=== PATIENT | female | born 1940 | race Caucasian/White ===

== ENCOUNTER 2016-08-14 03:20 | Day surgery (SDC) | payer MEDICARE ==
--- NOTE | 2016-08-14 03:47 | ED ---
Fall HPI - General Source: patient, EMS, RN notes reviewed Mode of arrival: EMS - History of Present Illness MD Complaint: fall <Natalio Salazar - Last Filed: 08/14/16 07:30> <Alon Heath - Last Filed: 08/14/16 09:04> - General Chief Complaint: Fall Stated Complaint: Fall Time Seen by Provider: 08/14/16 03:20 - History of Present Illness Initial Comments: This is a 76-year-old female who states she was trying to the bathroom prior to admission when she got her foot caught on a rug and fell she hit the right side of her forehead she also complains of left arm pain and right by her bicep. She has no complaints of other head or neck pain she does complain some thoracic back pain but this is chronic. Loss of function to her upper or lower extremities no blurry vision no other complaints at this time (Natalio Salazar) - Related Data Home Medications Medication Instructions Recorded Confirmed ALPRAZolam 0.5 mg PO TID PRN 10/16/13 10/28/15 Atorvastatin [Lipitor] 40 mg PO HS 10/16/13 10/28/15 Clopidogrel [Plavix] 75 mg PO DAILY 10/16/13 10/28/15 Donepezil [Aricept] 10 mg PO BID 10/16/13 10/28/15 Gabapentin [Neurontin] 600 mg PO BID 10/16/13 10/28/15 Insuln Asp Prt/Insulin Aspart 70 units SQ AC-BID 10/16/13 10/28/15 [NovoLOG MIX 70-30 VIAL] Multivitamins with Iron [Daily 1 tab PO DAILY 10/16/13 10/28/15 Multivitamin with Iron] Oxybutynin Chloride [Oxybutynin 5 mg PO BID 10/16/13 10/28/15 Chloride ER] Potassium Chloride [K-Tab ER] 10 meq PO BID 10/16/13 10/28/15 clonazePAM [KlonoPIN] 2 mg PO BID 10/16/13 10/28/15 Cholecalciferol [Vitamin D3] 1,000 unit PO BID 01/14/15 10/28/15 Furosemide [Lasix] 40 mg PO AC-SUPPER 01/14/15 10/28/15 Furosemide [Lasix] 80 mg PO QAM 01/14/15 10/28/15 [place]-3 Fatty Acids/Fish Oil [Fish 1 cap PO BID 01/14/15 10/28/15 Oil 1,000 mg Softgel] Venlafaxine HCl ER [Effexor XR] 75 mg PO BID 01/14/15 10/28/15 Atenolol [Tenormin] 25 mg PO BID 10/28/15 10/28/15 Losol Iodine Drops 6 drops PO BID 10/28/15 10/28/15 Previous Rx's Medication Instructions Recorded Aspirin EC [Ecotrin Low Dose] 81 mg PO DAILY tablet. 01/16/15 Isosorbide Mononitrate ER [Imdur] 30 mg PO DAILY #30 tab 01/16/15 Hydrocodone/Acetaminophen [[place] 1 each PO Q6HR PRN #60 tab 03/13/15 5-325] Allergies Allergy/AdvReac Type Severity Reaction Status Date / Time mineral oil [Mineral Oil] Allergy Rash/Hives Verified 10/28/15 10:54 naproxen sodium [From Aleve] Allergy Swelling Verified 11/02/15 11:49 nickel Allergy Rash/Hives Verified 10/28/15 10:54 Penicillins Allergy Anaphylaxis Verified 10/28/15 10:54 dove soap Allergy Rash/Hives Uncoded 10/28/15 10:54 Review of Systems ROS Other: All systems not noted in ROS Statement are negative. <Natalio Salazar - Last Filed: 08/14/16 07:30> ROS Other: All systems not noted in ROS Statement are negative. <Alon Heath - Last Filed: 08/14/16 09:04> ROS Statement: Those systems with pertinent positive or pertinent negative responses have been documented in the HPI. Past Medical History Past Medical History: Coronary Artery Disease (CAD), Cancer, Chest Pain / Angina , Diabetes Mellitus, Eye Disorder, Fibromyalgia, GERD/Reflux, Hyperlipidemia, Hypertension, Myocardial Infarction ([place]), Osteoarthritis (OA) Additional Past Medical History / Comment(s): HX STRESS INCONTINENCE, CHRONIC BACK PAIN, BREAST CANCER, GLASSES TO READ Last Myocardial Infarction Date:: 05/09/2012 History of Any Multi-Drug Resistant Organisms: None Reported Past Surgical History: Appendectomy, Breast Surgery, Heart Catheterization With Stent Additional Past Surgical History / Comment(s): EXT. CATARACT WITH LENS IMPLANT RAZIA.,LAST CARDIAC STENT 01/14/15-TOTAL 2 STENTS, colonscopy,RAZIA. BREAST LUMPECTOMY. 03-10-15 total rt knee replacement. Past Anesthesia/Blood Transfusion Reactions: No Reported Reaction Additional Past Anesthesia/Blood Transfusion Reaction / Comment(s): ALLERGY TO NICKEL Date of Last Stent Placement:: 01/14/15 Past Psychological History: Anxiety, Depression Additional Psychological History / Comment(s): pt lives at home wioth her husand. uses a cane/walker when up. gets no outside services into the home. Smoking Status: Former smoker Past Alcohol Use History: None Reported Additional Past Alcohol Use History / Comment(s): smoked from age [age] 1/2 pp week,quit 1964 Past Drug Use History: None Reported - Past Family History Brother(s) Family Medical History: CVA/TIA Additional Family Medical History / Comment(s): HX BLOOD CLOTS Mother History Unknown: Yes Family Medical History: Cancer Additional Family Medical History / Comment(s): Lung CA, Bone CA, Father Family Medical History: CVA/TIA, Myocardial Infarction ([place]) <Natalio Salazar - Last Filed: 08/14/16 07:30> General Exam Limitations: no limitations General appearance: alert, in no apparent distress Head exam: Present: normocephalic, other (She demonstrates ecchymosis over the right upper eyelid no step-off or crepitation. No step-off no crepitation pupils equal round and reactive. Unsure canals are clear nontender to palpation ) Eye exam: Present: PERRL, EOMI ENT exam: Present: normal oropharynx Neck exam: Present: normal inspection. Absent: tenderness, meningismus, lymphadenopathy Respiratory exam: Present: normal lung sounds bilaterally. Absent: respiratory distress, wheezes, rales, rhonchi, stridor Cardiovascular Exam: Present: regular rate, normal rhythm, normal heart sounds. Absent: systolic murmur, diastolic murmur, rubs, gallop, clicks GI/Abdominal exam: Present: soft, normal bowel sounds. Absent: distended, tenderness, guarding, rebound, rigid Extremities exam: Present: tenderness (Is for the mid left humerus no definite step-off crepitation regulation. Risks the exam is unremarkable for this extremity no before meals tenderness.), normal capillary refill. Absent: full ROM Back exam: Present: normal inspection, tenderness (Tennis of the paraspinous muscles of the midthoracic spine between his scapula no spinous process tenderness), paraspinal tenderness. Absent: CVA tenderness (R), CVA tenderness (L), vertebral tenderness, rash noted Neurological exam: Present: alert, oriented X3, CN II-XII intact Psychiatric exam: Present: normal affect, normal mood Skin exam: Present: warm, dry, intact, normal color. Absent: rash <Natalio Salazar - Last Filed: 08/14/16 07:30> General appearance: alert, in no apparent distress, obese Head exam: Present: normocephalic, normal inspection. Absent: atraumatic ( Right eye bruise) Eye exam: Present: normal appearance, PERRL, EOMI. Absent: scleral icterus, conjunctival injection, periorbital swelling ENT exam: Present: normal exam, mucous membranes dry Neck exam: Present: normal inspection. Absent: tenderness, meningismus, lymphadenopathy Respiratory exam: Present: normal lung sounds bilaterally. Absent: respiratory distress, wheezes, rales, rhonchi, stridor Cardiovascular Exam: Present: regular rate, normal rhythm, normal heart sounds. Absent: systolic murmur, diastolic murmur, rubs, gallop, clicks GI/Abdominal exam: Present: soft, normal bowel sounds. Absent: distended, tenderness, guarding, rebound, rigid Extremities exam: Present: normal inspection, full ROM, normal capillary refill , other (Left shoulder dislocation, patient is neurovascularly intact). Absent : tenderness, pedal edema, joint swelling, calf tenderness Back exam: Present: normal inspection Neurological exam: Present: alert, oriented X3, CN II-XII intact Psychiatric exam: Present: normal affect, normal mood Skin exam: Present: warm, dry, intact, normal color. Absent: rash <Alon Heath - Last Filed: 08/14/16 09:04> - General Exam Comments Initial Comments: This is a well little pulmonary awake alert oriented 3 female she does demonstrate a [place] Coma Scale of 15 (Natalio Salazar) Course <Natalio Salazar - Last Filed: 08/14/16 07:30> <Alon Heath - Last Filed: 08/14/16 09:04> Vital Signs 08/14/16 08/14/16 08/14/16 03:28 05:25 06:00 Temperature 97.8 F Pulse Rate 71 66 80 Respiratory 16 18 18 Rate Blood Pressure 98/40 97/45 129/58 O2 Sat by Pulse 94 L 98 Oximetry 08/14/16 08/14/16 08/14/16 06:52 06:53 06:58 Temperature Pulse Rate 77 74 80 Respiratory 18 18 18 Rate Blood Pressure 128/58 128/58 129/58 O2 Sat by Pulse 99 96 99 Oximetry 08/14/16 08/14/16 08/14/16 07:03 07:08 07:19 Temperature Pulse Rate 77 76 84 Respiratory 18 18 16 Rate Blood Pressure 162/72 159/63 140/79 O2 Sat by Pulse 99 99 97 Oximetry 08/14/16 08/14/16 08/14/16 07:22 07:25 07:30 Temperature Pulse Rate 81 81 78 Respiratory 16 16 16 Rate Blood Pressure 171/66 O2 Sat by Pulse 100 100 97 Oximetry 08/14/16 08/14/16 08/14/16 07:35 07:40 07:45 Temperature Pulse Rate 81 79 77 Respiratory 16 16 16 Rate Blood Pressure 157/67 152/70 143/66 O2 Sat by Pulse 99 100 99 Oximetry 08/14/16 08/14/16 07:50 08:04 Temperature Pulse Rate 78 78 Respiratory 16 16 Rate Blood Pressure 140/59 171/66 O2 Sat by Pulse 100 97 Oximetry - Reevaluation(s) Reevaluation #1: 08/14/16 07:31 I did discuss case with Dr. Bee initially the plan was to use close reduction to reduce the shoulder and the the CAT scan. The case will be endorsed to Dr. Heath will make the final disposition (Natalio Salazar) Reevaluation #2: 08/14/16 08:46 Patient resting comfortably, still with left shoulder pain (Alon Heath ) Reevaluation #3: 08/14/16 09:00 Spoke with orthopedics on-call Dr. Bee as well as anesthesiology, patient will have inpatient reduction in the operating room (Alon Heath) Procedures - Procedural Sedation Procedural Sedation Start Time: 06:52 Procedural Sedation Stop Time: 07:30 Indications: fracture/dislocation reduction Mallampati Airway Score: 3 IV Propofol Dose (mgs): 15 Patient Tolerated Procedure: well (Patient did require 2 doses the first attempt was 100 mg a second one was 50 mg) <Natalio Salazar - Last Filed: 08/14/16 07:30> - Orthopedic Joint Reduction Joint #1 Consent Obtained: verbal consent Time Out Performed: Yes Side: left Joint Reduction Location: shoulder Analgesia: procedural sedation Shoulder Technique Used (if applicable): traction/counter-traction, external rotation, Milch, Vishal, other (Multiple attempts at reduction, failed) Technique Used: traction/counter-traction Post-Reduction Neuro Exam: intact Post-Reduction Vascular Exam: intact Post Reduction X-Ray Obtained: Yes Post Reduction X-Ray Results: not reduced Splint Applied: Yes Patient Tolerated Procedure: well - Procedural Sedation Preparation: trapper bird applied, pulse oximeter, supplemental O2 applied IV Propofol Dose (mgs): 150 Complications: none Interventions: oxygen applied Patient Tolerated Procedure: well <Alon Heath - Last Filed: 08/14/16 09:04> - Procedures Initial comment: Attempts to use closed reduction the left shoulder were attempted 3 the first 2 failed. Initiated did appear that the shoulder did reduce however due to the patient's habitus is very difficult to palpate the humeral head. A third attempt was accomplished with x-rays pending. (Natalio Salazar) - Procedural Sedation Other Medications Used: Dilaudid (Alon Heath) Medical Decision Making - Lab Data Result diagrams: 08/14/16 05:45 08/14/16 05:45 - EKG Data -: EKG Interpreted by Ar EKG shows normal: sinus rhythm (EKG shows sinus rhythm with first-degree AV block rate was 70. Interval 222 QRS duration 84 daily since QTC of 426/460 st- t wave changes.) <Natalio Salazar - Last Filed: 08/14/16 07:30> - Lab Data Result diagrams: 08/14/16 05:45 08/14/16 05:45 - Radiology Data Radiology results: report reviewed (CT of left shoulder and multiple subsequent x-rays of left shoulder show continued left shoulder anterior inferior dislocation), image reviewed <Alon Heath - Last Filed: 08/14/16 09:04> - Medical Decision Making 72 for female here status post fall, mechanical fall with closed head injury, patient also stating left shoulder injury, left shoulder dislocation, under conscious sedation procedural sedation in the emergency room 3 attempts were made at relocation, unsuccessful, orthopedics and anesthesiology were notified and patient will be admitted for reduction in the emergency room (Alon Heath) - Lab Data Lab Results 08/14/16 08/14/16 08/14/16 Range/Units 05:45 05:45 05:45 WBC 14.1 H (3.8-10.6) k/uL RBC 4.21 (3.80-5.40) m/uL Hgb 12.4 (11.4-16.0) gm/dL Hct 38.9 (34.0-46.0) % MCV 92.3 (80.0-100.0) fL MCH 29.4 (25.0-35.0) pg MCHC 31.8 (31.0-37.0) g/dL RDW 13.5 (11.5-15.5) % Plt Count 270 (150-450) k/uL Neutrophils % 73 % Lymphocytes % 16 % Monocytes % 6 % Eosinophils % 2 % Basophils % 0 % Neutrophils # 10.2 H (1.3-7.7) k/uL Lymphocytes # 2.3 (1.0-4.8) k/uL Monocytes # 0.9 (0-1.0) k/uL Eosinophils # 0.3 (0-0.7) k/uL Basophils # 0.1 (0-0.2) k/uL PT 10.6 (9.0-12.0) sec INR 1.0 (<1.1) APTT 22.7 (22.0-30.0) sec Sodium 138 (137-145) mmol/L Potassium 4.1 (3.5-5.1) mmol/L Chloride 100 (98-107) mmol/L Carbon Dioxide 27 (22-30) mmol/L Anion Gap 11 mmol/L BUN 15 (7-17) mg/dL Creatinine 0.70 (0.52-1.04) mg/dL Est GFR (MDRD) Af Amer >60 (>60 ml/min/1.73 sqM) Est GFR (MDRD) Non-Af >60 (>60 ml/min/1.73 sqM) Glucose 233 H (74-99) mg/dL Calcium 9.2 (8.4-10.2) mg/dL Magnesium 1.8 (1.6-2.3) mg/dL Total Bilirubin 0.6 (0.2-1.3) mg/dL AST 29 (14-36) U/L ALT 42 (9-52) U/L Alkaline Phosphatase 93 (38-126) U/L Total Protein 6.8 (6.3-8.2) g/dL Albumin 3.4 L (3.5-5.0) g/dL Disposition <Natalio Salazar - Last Filed: 08/14/16 07:30> Decision to Admit Reason: Admit from EC <Alon Heath - Last Filed: 08/14/16 09:04> Clinical Impression: Fall, Head injury, Dislocation of left shoulder joint Disposition: ADMITTED IP TO THIS HOSP Condition: Fair
[2016-08-14] MEDS ORDERED: ACETAMINOPHEN IV (For NPO) 1,000 MG in EMPTY BAG 1 BAG IVPB ONE (04:07)
--- NOTE | 2016-08-14 04:34 | CT ---
EXAM: CT Head Without Intravenous Contrast. CLINICAL HISTORY: Trauma to right face. TECHNIQUE: Axial computed tomography images of the head/brain without intravenous contrast. CTDI is 57.40 mGy and DLP is 1047.10 mGy-cm COMPARISON: No relevant prior studies available. FINDINGS: Brain: No acute intracranial hemorrhage, loss of avila-white differentiation, or significant mass effect. Ventricular and sulcal prominence commensurate with the patient's age. Ventricles: See above. Bones/joints: Fracture of the inferior wall of the right orbit. Right periorbital hematoma. Bilateral globes appear intact. Soft tissues: Unremarkable. Sinuses: Hemorrhage is present in the right maxillary sinus. Mastoid air cells: Unremarkable. IMPRESSION: No acute intracranial hemorrhage or calvarial fracture. Fracture of the inferior wall of the right orbit. Right periorbital hematoma. CT of the face may be considered for further evaluation, as clinically indicated. EXAM: CT Cervical Spine Without Intravenous Contrast. CLINICAL HISTORY: Trauma to right face. TECHNIQUE: Axial computed tomography images of the cervical spine without intravenous contrast. CTDI is 57.40 mGy and DLP is 1047.10 mGy-cm COMPARISON: No relevant prior studies available. FINDINGS: Vertebrae: No acute fracture or malalignment. Diffuse osteopenia. Discs/spinal canal/neural foramina: Mild degenerative changes of the cervical spine with disc height loss, osteophytes, uncovertebral spurs, and facet arthropathy. No significant osseous spinal or foraminal stenosis. Soft tissues: Unremarkable. Thyroid: Indeterminate 8 mm thyroid nodule. Lung apices: Unremarkable as visualized. IMPRESSION: No acute fracture or malalignment.
--- NOTE | 2016-08-14 04:44 | XR ---
EXAM: XR Left Humerus, 2 or More Views. CLINICAL HISTORY: Reason: Pain TECHNIQUE: Frontal and lateral views of the left humerus. COMPARISON: No relevant prior studies available. FINDINGS: Bones/joints: Anterior shoulder dislocation. A large fracture fragment projects over the glenoid, the humeral head is likely the donor site. Soft tissues: Unremarkable. IMPRESSION: Fracture dislocation of the left shoulder.
[2016-08-14] MEDS ORDERED: HYDROmorphone 1 MG/ML 1 ML SYRINGE IVP STA (04:57)
--- NOTE | 2016-08-14 05:09 | XR ---
EXAM: XR Thoracic Spine, 3 Views. CLINICAL HISTORY: Reason: Pain TECHNIQUE: Frontal, lateral and swimmer's views of the thoracic spine. COMPARISON: No relevant prior studies available. FINDINGS: Limitations: The patient's body habitus. Vertebrae: No acute fracture or malalignment. Disc spaces: Mild degenerative changes of the thoracic spine. Soft tissues: Unremarkable. IMPRESSION: No definite acute osseous abnormality.
[2016-08-14] MEDS ORDERED: SODIUM CHLORIDE 0.9% 1,000 ML IV STA (05:49)
[2016-08-14 06:01] LABS: Basophils # (A) 0.1 k/uL (0-0.2); Basophils % (A) 0 %; CH 30.5; CHCM 33.2; Eosinophils # (A) 0.3 k/uL (0-0.7); Eosinophils % (A) 2 %; HCT 38.9 % (34.0-46.0); HGB 12.4 gm/dL (11.4-16.0); Luc # (Auto) 0.34; Luc % (Auto) 2; Lymphocytes # (A) 2.3 k/uL (1.0-4.8); Lymphocytes % (A) 16 %; MCH 29.4 pg (25.0-35.0); MCHC 31.8 g/dL (31.0-37.0); MCV 92.3 fL (80.0-100.0); Mean Platelet Volume 7.5; Monocytes # (A) 0.9 k/uL (0-1.0); Monocytes % (A) 6 %; Neutrophils # (A) 10.2 k/uL (1.3-7.7); Neutrophils % (A) 73 %; RBC 4.21 m/uL (3.80-5.40); RDW 13.5 % (11.5-15.5); WBC 14.1 k/uL (3.8-10.6); WBC (Perox) 13.71
[2016-08-14 06:06] LABS: Prothrombin Time 10.6 sec (9.0-12.0)
[2016-08-14 06:07] LABS: ALT 42 U/L (9-52); AST 29 U/L (14-36); Alkaline Phosphatase 93 U/L (38-126); Anion Gap 11 mmol/L; Blood Urea Nitrogen 15 mg/dL (7-17); Calcium 9.2 mg/dL (8.4-10.2); Carbon Dioxide 27 mmol/L (22-30); Chloride 100 mmol/L (98-107); Glucose 233 mg/dL (74-99); Magnesium 1.8 mg/dL (1.6-2.3); Non-African American GFR(MDRD) >60 (>60 ml/min/1.73 sqM); Potassium 4.1 mmol/L (3.5-5.1); Sodium 138 mmol/L (137-145); Total Bilirubin 0.6 mg/dL (0.2-1.3); Total Protein 6.8 g/dL (6.3-8.2)
[2016-08-14 06:13] LABS: Partial Thromboplastin Time 22.7 sec (22.0-30.0)
[2016-08-14] MEDS ORDERED: PROPOFOL 10 MG/ML 20 ML VIAL IV STA (06:32)
--- NOTE | 2016-08-14 06:37 | XR ---
EXAM: XR Chest, 1 View. CLINICAL HISTORY: Reason: cough TECHNIQUE: Frontal view of the chest. COMPARISON: 03/13/2015 FINDINGS: Lungs: Low lung volumes with bibasilar atelectasis. Left apical pleural parenchymal scar. Pleural space: Unremarkable. No pneumothorax. Heart: Stable cardiomediastinal silhouette. Mediastinum: See above. Bones/joints: Anterior left shoulder dislocation and fracture. Soft tissues: Surgical clips project over the right axilla. IMPRESSION: Hypoventilatory examination with bibasilar atelectasis.
--- NOTE | 2016-08-14 08:27 | XR ---
EXAMINATION TYPE: XR shoulder limited LT DATE OF EXAM: 08/14/2016 7:07 AM COMPARISON: NONE HISTORY: Pain TECHNIQUE: Shoulder examined in one view FINDINGS: There is dislocation of the humeral head. There is avulsion of the greater tuberosity of the humerus. Bankart fracture is not excluded. The acromio-clavicular junction is normal. IMPRESSION: 1. Dislocation of the humerus 2. Avulsion of the greater tuberosity. 3. Possible Bankart fracture.
--- NOTE | 2016-08-14 08:28 | XR ---
EXAMINATION TYPE: XR shoulder limited LT DATE OF EXAM: 08/14/2016 7:21 AM COMPARISON: Left shoulder same date HISTORY: Dislocation TECHNIQUE: Shoulder examined in one view FINDINGS: There is an anterior inferior dislocation of the humeral head in relation to the glenoid. There is av ulsion of the greater tuberosity of the humerus. Possible Bankart fracture may be present. Findings a ppear stable from comparison. The acromio-clavicular junction is normal. IMPRESSION: 1. Anterior-inferior dislocation left humeral head
--- NOTE | 2016-08-14 08:30 | XR ---
EXAMINATION TYPE: XR shoulder limited LT DATE OF EXAM: 08/14/2016 7:51 AM COMPARISON: Left shoulder images same date HISTORY: Pain TECHNIQUE: Shoulder examined in 3 FINDINGS: The dislocation remains present. The humeral avulsion and suspected Bankart fracture are stable. IMPRESSION: 1. Dislocation left shoulder
--- NOTE | 2016-08-14 08:36 | CT ---
EXAMINATION TYPE: CT shoulder LT wo con DATE OF EXAM: 08/14/2016 8:29 AM COMPARISON: NONE HISTORY: Fx and dislocation CT DLP: 842.4 mGycm Automated exposure control for dose reduction was used. TECHNIQUE: Axial images 3 mm thick sections. Reconstructed images in coronal and sagittal plane. Thre e-D reconstructed images performed separately on the ventricular computer by the technologist are jarod freed. FINDINGS: There is dislocation of the humeral head anterior and inferior to the glenoid. The acromioclavicular junction appears intact. There is calcification at the shoulder joint space which appears to be an av ulsion of the tuberosity of the humerus. Plain film suggestion of a Bankart fracture is not supported on these images. The inferior glenoid appears intact as visualized. Hill-Sachs deformity may be pres ent. IMPRESSION: 1. DISLOCATION OF THE HUMERAL HEAD AND GLENOID ANTERIOR AND INFERIOR. 2. AVULSION OF THE GREATER TUBEROSITY OF THE HUMERUS. 3. POSSIBLE HILL-SACHS DEFORMITY OF THE HUMERAL HEAD. 4. NO BANKART FRACTURE IS IDENTIFIED THE CT IMAGES
[2016-08-14] MEDS ORDERED: INSULIN LISPRO (humaLOG) 300 UNIT/3 ML VIAL SQ ONE (10:36)
[2016-08-14] MEDS ORDERED: LACTATED RINGERS 1,000 ML IV ONE ×3 (10:42→12:30)
[2016-08-14] MEDS ORDERED: HYDROmorphone 1 MG/ML 1 ML SYRINGE IVP ONE ×5 (10:45→12:30)
[2016-08-14 10:48] LABS: Glucose,Whole Blood 242 mg/dL (75-99)
[2016-08-14] MEDS ORDERED: LIDOCAINE 1% INJ 10MG/ML (20 ML MDV) ONE (10:51)
[2016-08-14] MEDS ORDERED: PROPOFOL 10 MG/ML 20 ML VIAL IV ONE (10:51)
[2016-08-14] MEDS ORDERED: MIDAZOLAM 2 MG/2 ML VIAL ONE (10:51)
[2016-08-14] MEDS ORDERED: SUCCINYLCHOLINE CHLORIDE 100 MG/5 ML SYR IV ONE (10:51)
[2016-08-14] MEDS ORDERED: SENNOSIDES-DOCUSATE SODIUM 1 EACH TAB PO PRN (11:43)
[2016-08-14] MEDS ORDERED: HYDROcodone/APAP 5-325MG 1 EACH TAB PO PRN ×3 (11:43→14:00)
[2016-08-14] MEDS ORDERED: HYDROmorphone 1 MG/ML 1 ML SYRINGE IVP PRN ×3 (11:43)
[2016-08-14] MEDS ORDERED: diphenhydrAMINE 25 MG CAP PO PRN (11:43)
[2016-08-14] MEDS ORDERED: hydrOXYzine PAMOATE 25 MG CAP PO PRN (11:43)
--- NOTE | 2016-08-14 11:52 | P.HPOR ---
History of Present Illness H&P Date: 08/14/16 Chief Complaint: Left shoulder fracture dislocation after fall Mrs. Doraod is a 76-year-old female with a history of falling in her bathroom and sustaining a fracture dislocation of the left shoulder. She is morbidly obese and has multiple medical problems including diabetes. She states that she fell and got her left arm wedged between the wall and the sink and this was the cause of her left shoulder problems. She was taken to [facility] where x-rays were taken and confirmed a fracture dislocation of left shoulder. The ER staff attempted to reduce the shoulder 3 times under sedation and was unsuccessful. Therefore I was called for further evaluation and management of this problem. Of note, she had knee replacement surgery done by Dr. Rodriguez approximately a year and a half ago. She denies any significant loss of function below the elbow. She does confirm significant left shoulder pain. No other injuries. Review of Systems Constitutional: Reports as per HPI Musculoskeletal: Reports as per HPI Past Medical History Past Medical History: Coronary Artery Disease (CAD), Cancer, Chest Pain / Angina , Diabetes Mellitus, Eye Disorder, Fibromyalgia, GERD/Reflux, Hyperlipidemia, Hypertension, Myocardial Infarction (ND), Osteoarthritis (OA) Additional Past Medical History / Comment(s): HX STRESS INCONTINENCE, CHRONIC BACK PAIN, BREAST CANCER, GLASSES TO READ Last Myocardial Infarction Date:: 05/09/2012 History of Any Multi-Drug Resistant Organisms: None Reported Past Surgical History: Appendectomy, Breast Surgery, Heart Catheterization With Stent Additional Past Surgical History / Comment(s): EXT. CATARACT WITH LENS IMPLANT RAZIA.,LAST CARDIAC STENT 01/14/15-TOTAL 2 STENTS, colonscopy,RAZIA. BREAST LUMPECTOMY. 03-10-15 total rt knee replacement. Past Anesthesia/Blood Transfusion Reactions: No Reported Reaction Additional Past Anesthesia/Blood Transfusion Reaction / Comment(s): ALLERGY TO NICKEL Date of Last Stent Placement:: 01/14/15 Past Psychological History: Anxiety, Depression Additional Psychological History / Comment(s): pt lives at home wioth her husand. uses a cane/walker when up. gets no outside services into the home. Smoking Status: Former smoker Past Alcohol Use History: None Reported Additional Past Alcohol Use History / Comment(s): smoked from age [age] 1/2 pp week,quit 1964 Past Drug Use History: None Reported - Past Family History Brother(s) Family Medical History: CVA/TIA Additional Family Medical History / Comment(s): HX BLOOD CLOTS Mother History Unknown: Yes Family Medical History: Cancer Additional Family Medical History / Comment(s): Lung CA, Bone CA, Father Family Medical History: CVA/TIA, Myocardial Infarction (ND) Medications and Allergies Home Medications Medication Instructions Recorded Confirmed Type ALPRAZolam 0.5 mg PO TID PRN 10/16/13 10/28/15 History Atorvastatin [Lipitor] 40 mg PO HS 10/16/13 10/28/15 History Clopidogrel [Plavix] 75 mg PO DAILY 10/16/13 10/28/15 History Donepezil [Aricept] 10 mg PO BID 10/16/13 10/28/15 History Gabapentin [Neurontin] 600 mg PO BID 10/16/13 10/28/15 History Insuln Asp Prt/Insulin Aspart 70 units SQ AC-BID 10/16/13 10/28/15 History [NovoLOG MIX 70-30 VIAL] Multivitamins with Iron [Daily 1 tab PO DAILY 10/16/13 10/28/15 History Multivitamin with Iron] Oxybutynin Chloride [Oxybutynin 5 mg PO BID 10/16/13 10/28/15 History Chloride ER] Potassium Chloride [K-Tab ER] 10 meq PO BID 10/16/13 10/28/15 History clonazePAM [KlonoPIN] 2 mg PO BID 10/16/13 10/28/15 History Cholecalciferol [Vitamin D3] 1,000 unit PO BID 01/14/15 10/28/15 History Furosemide [Lasix] 40 mg PO AC-SUPPER 01/14/15 10/28/15 History Furosemide [Lasix] 80 mg PO QAM 01/14/15 10/28/15 History [place]-3 Fatty Acids/Fish Oil [Fish 1 cap PO BID 01/14/15 10/28/15 History Oil 1,000 mg Softgel] Venlafaxine HCl ER [Effexor XR] 75 mg PO BID 01/14/15 10/28/15 History Atenolol [Tenormin] 25 mg PO BID 10/28/15 10/28/15 History Losol Iodine Drops 6 drops PO BID 10/28/15 10/28/15 History Allergies Allergy/AdvReac Type Severity Reaction Status Date / Time mineral oil [Mineral Oil] Allergy Rash/Hives Verified 10/28/15 10:54 naproxen sodium [From Aleve] Allergy Swelling Verified 11/02/15 11:49 nickel Allergy Rash/Hives Verified 10/28/15 10:54 Penicillins Allergy Anaphylaxis Verified 10/28/15 10:54 dove soap Allergy Rash/Hives Uncoded 10/28/15 10:54 Physical Examination Exam is limited to the left upper extremity. Patient is morbidly obese with significant truncal obesity. The left landmarks are difficult to interpret secondary to body habitus. She is able to move the elbow and the forearm wrist and hand and fingers without problem. She denies any numbness or tingling down the left upper extremity. She does complain of significant irritability of the left shoulder to any movement. There is no evidence of obvious swelling or ecchymosis currently. Results - Labs Labs: Abnormal Lab Results - Last 24 Hours (Table) 08/14/16 08/14/16 08/14/16 Range/Units 05:45 05:45 10:30 WBC 14.1 H (3.8-10.6) k/uL Neutrophils # 10.2 H (1.3-7.7) k/uL Glucose 233 H (74-99) mg/dL POC Glucose (mg/dL) 242 H (75-99) mg/dL Albumin 3.4 L (3.5-5.0) g/dL H & H 08/14/16 Range/Units 05:45 Hgb 12.4 (11.4-16.0) gm/dL Hct 38.9 (34.0-46.0) % Coagulation 08/14/16 Range/Units 05:45 INR 1.0 (<1.1) Result Diagrams: 08/14/16 05:45 08/14/16 05:45 - Diagnostic results Shoulder x-ray: report reviewed, image reviewed (Plain x-rays and computed tomography scan show a fracture dislocation of the glenohumeral joint with an anterior inferior dislocation and what appears to be a fairly large greater tuberosity fracture.) Shoulder CT: report reviewed, image reviewed Assessment and Plan (1) Dislocation of left shoulder joint Status: Acute (2) Fracture of proximal end of humerus Status: Acute Plan: 1. I discussed the situation with Mrs. Dorado in detail today. I have recommended closure reduction with possible open reduction of the left shoulder joint in the operating room under general anesthesia with muscular relaxation. Should this not be able to be performed under closed methods, then a small incision can be made to insert a retractor or a metal finger to assist in the reduction. She wishes to proceed with this and I have explained to her the potential risks and complications of this procedure is being inclusive of, but not limited to: Leading, infection, scarring, discomfort, blood vessel and/or nerve damage, need for further surgery, failure to relieve symptoms, persistence worsening of problems, nonunion, instability, loss of limb or life, and other risks. I have explained to her that considering the nature of this injury as well as her body habitus and multiple medical comorbidities, this shoulder will likely have chronic issues with stiffness, weakness and pain, regardless of future treatment. Surgical fixation of the greater tuberosity is a possibility but considering the above factors we will need to discuss this in significant detail and come to a mutually agreed upon decision regarding surgery. The consent form has been signed. 2. Should the shoulder be able to be reduced without incision, she may be able to be discharged to home today with follow-up with either myself or Dr. Rodriguez in 1 week.
--- NOTE | 2016-08-14 12:01 | P.OP ---
Date of Procedure: 08/14/16 Procedure(s) Performed: PREOPERATIVE DIAGNOSES: 1. Left shoulder fracture dislocation 2. Morbid obesity with multiple comorbidities POSTOPERATIVE DIAGNOSES: 1. Left shoulder fracture-dislocation 2. Morbid obesity with multiple comorbidities PROCEDURES PERFORMED: 1. Left shoulder closed reduction of glenohumeral joint ANESTHESIA: Gen. OFFSET ASSISTANT PRESS OPERATOR: None COMPLICATIONS: None ESTIMATED BLOOD LOSS: None mL. DISPOSITION: To post-anesthesia care unit INDICATIONS: Mrs. Dorado is a 76-year-old female who fell and sustained a fracture dislocation of the left shoulder. She presents to the operating room today for closed reduction and possible open reduction if necessary of the glenohumeral joint. Please see my preoperative note for further details. The consent form has been signed PROCEDURE: After appropriate consent was obtained, the patient was taken to the operating room placed in the supine position. Anesthesia was initiated, and after confirmation of adequate anesthesia, the patient was carefully positioned. Care was taken to make sure that all pressure points were adequately padded. The shoulder was gently manipulated using countertraction in the axilla and gentle abduction, external rotation and traction. This reduced the joint quite easily. C-arm was then used to confirm reduction of the glenohumeral joint and the joint was then further evaluated under fluoroscopy to make sure that the arm sling position would be a stable position for her humeral joint. There is no evidence of subluxation or redislocation during gentle manipulation with the arm at the side in an arc of 60 forward flexion 10 extension and 60-70 of relative abduction. It should be noted that due to this patient's body habitus the C-arm images showed the humeral shaft to be abducted approximately 75 in her normal resting position. A shoulder immobilizer was then applied and she was taken to recovery room after extubation in stable condition.
[2016-08-14] MEDS ORDERED: LABETALOL SYRINGE 5 MG/ML IVP ONE (12:15)
[2016-08-14 13:49] VITALS: BMI 49.4
--- NOTE | 2016-08-14 13:53 | XR ---
FLUOROSCOPY 4 seconds of fluoroscopy time were utilized during ) reduction of the left shoulder. 2 images documen t the procedure.
[2016-08-14] MEDS ORDERED: MORPHINE SULFATE 2 MG/ML SYRINGE IV PRN (14:00)
[2016-08-14] MEDS: INSULIN LISPRO (humaLOG) 300 UNIT/3 ML VIAL SQ SCH ×3 (14:06→20:39)
[2016-08-14 17:16] LABS: Glucose,Whole Blood 209 mg/dL (75-99)
[2016-08-14 20:19] LABS: Glucose,Whole Blood 246 mg/dL (75-99)
[2016-08-14 20:31] LABS: Hemoglobin A1C 8.3 % (4.2-6.1)
[2016-08-14] MEDS: LACTATED RINGERS 1,000 ML IV SCH ×2 (20:39)
[2016-08-15 06:55] LABS: Glucose,Whole Blood 208 mg/dL (75-99)
[2016-08-15] MEDS: INSULIN LISPRO (humaLOG) 300 UNIT/3 ML VIAL SQ SCH ×4 (07:00→20:06)
[2016-08-15] MEDS: HYDROcodone/APAP 5-325MG 1 EACH TAB PO PRN ×2 (08:21→17:05)
[2016-08-15] MEDS: LACTATED RINGERS 1,000 ML IV SCH (10:23)
[2016-08-15 11:41] LABS: Glucose,Whole Blood 269 mg/dL (75-99)
[2016-08-15 17:24] LABS: Glucose,Whole Blood 238 mg/dL (75-99)
[2016-08-15] MEDS ORDERED: FUROSEMIDE 40 MG TAB PO SCH (17:30)
[2016-08-15] MEDS: INSULN ASP PRT/INSULIN ASPART 100 UNIT/ML 10 ML VIAL SQ SCH (17:40)
[2016-08-15] MEDS: ATENOLOL 25 MG TAB PO SCH (19:42)
[2016-08-15] MEDS: VENLAFAXINE HCL ER 75 MG CAP PO SCH (19:42)
[2016-08-15] MEDS: OXYBUTYNIN XL 5 MG TAB.ER.24 PO SCH (19:42)
[2016-08-15] MEDS: POTASSIUM CHLORIDE ER 10 MEQ TAB.ER.PRT PO SCH (19:42)
[2016-08-15] MEDS: DONEPEZIL 10 MG TAB PO SCH (19:42)
[2016-08-15] MEDS: GABAPENTIN 300 MG CAP PO SCH (19:42)
[2016-08-15 20:00] LABS: Glucose,Whole Blood 267 mg/dL (75-99)
[2016-08-15] MEDS ORDERED: ATORVASTATIN 40 MG TAB PO SCH (21:00)
--- NOTE | 2016-08-15 21:54 | CONS ---
DATE OF CONSULTATION: REASON FOR CONSULTATION: Multiple medical problems, morbid obesity and management of diuretic therapy. [id number]old female came in after a fall. Patient underwent rotator cuff repair on the left shoulder. Patient is morbidly obese with multiple medical problems. Patient denied any fever or chills. Patient denied any nausea or vomiting. Patient did not pass gas yet. Patient has chronic low back pain. Patient has normal ejection fraction in the past. Patient denied any fever, chills, dysuria. Patient denied any nausea or vomiting. Patient is morbidly obese. Does have chronic venostasis. Patient is on high dose of Lasix orally without any problems with kidney function, because of which it can be continued. Patient's blood sugars are minimally elevated. REVIEW OF SYSTEMS: CONSTITUTIONAL: No fever, no malaise, no fatigue. HEENT: No recent visual problems or hearing problems. Denied any sore throat. CARDIOVASCULAR: No chest pain, orthopnea, PND, no palpitations, no syncope. PULMONARY: No shortness of breath, no cough, no hemoptysis. GASTROINTESTINAL: No diarrhea, no nausea, no vomiting, no abdominal pain. Normoactive bowel sounds. NEUROLOGICAL: No headaches, no weakness, no numbness. HEMATOLOGICAL: Denies any bleeding or petechiae. GENITOURINARY: Denies any burning micturition, frequency, or urgency. MUSCULOSKELETAL/RHEUMATOLOGICAL: Pain in the surgical site area. ENDOCRINE: Denies any polyuria or polydipsia. The rest of the 14 point review of systems is negative. Home medications include: 1. Alprazolam. 2. Atorvastatin. 3. Plavix. 4. Donepezil. 5. Gabapentin. 6. Insulin Aspart 70/30 70 units before meals b.i.d. 7. Multivitamin. 8. Oxybutynin. 9. Potassium chloride. 10. Clonazepam. 11. Cholecalciferol. 12. Lasix. 13. [place]-3 fatty acids. 14. Venlafaxine. 15. Atenolol. 16. Losol. 17. Aspirin. 18. Isosorbide mononitrate. 19. Hydrocodone/acetaminophen. ALLERGIES: 1. MINERAL OIL. 2. NICKEL. 3. PENICILLINS. PAST MEDICAL HISTORY: 1. Coronary artery disease. 2. Breast cancer in the past. 3. Diabetes mellitus. 4. Fibromyalgia. 5. Gastroesophageal reflux disease. 6. Hyperlipidemia. 7. Hypertension. 8. Myocardial infarction in the past. 9. Osteoarthritis. 10. Chronic venostasis. 11. Morbidly obese. SOCIAL HISTORY: Former smoker. Used to smoke half a pack per day; quit in 1964. Denied any alcohol abuse or any drug abuse. FAMILY HISTORY: Brother has CVA, TIA and blood clots. Mother had lung cancer and bone cancer. Father had CVA, TIA in the past. PHYSICAL EXAMINATION: VITAL SIGNS: Temperature 97.8, pulse of 95, respiratory rate of 16, blood pressure 151/67. Saturating at 91% on room air. GENERAL: Morbidly obese. Alert and oriented x3. Patient has some chronic venostasis in bilateral lower extremities. Patient does have history of sleep apnea. HEENT: Pupils are round and equally reacting to light. EOMI. No scleral icterus. No conjunctival pallor. Normocephalic, atraumatic. No pharyngeal erythema. No thyromegaly. CARDIOVASCULAR: S1 and S2 present. No murmurs, rubs, or gallops. PULMONARY: Chest is clear to auscultation, no wheezing or crackles. ABDOMEN: Soft, nontender, nondistended, normoactive bowel sounds. No palpable organomegaly. MUSCULOSKELETAL: No joint swelling or deformity. EXTREMITIES: No cyanosis, clubbing, or pedal edema. NEUROLOGICAL: Gross neurological examination did not reveal any focal deficits. SKIN: No rashes. LABORATORY DATA: CBC, CMP are abnormal for elevated WBC count of 14,100 without any signs or symptoms of infection. This is a reactive leukocytosis. ASSESSMENT AND PLAN: 1. Fall, which is mechanical, without any syncopal episode. 2. Left shoulder arthroplasty, postoperative day 1. Pain management and DVT prophylaxis as per primary service. 3. Coronary artery disease. 4. Type 2 diabetes mellitus. 5. Morbid obesity. 6. Sleep apnea. 7. Hyperlipidemia. 8. Hypertension. 9. Gastroesophageal reflux disease. 10. Degenerative joint disease. 11. Fibromyalgia. 12. Leukocytosis secondary to fall and reactive leukocytosis. PLAN: Medication reconciliation was done. Most of her home medications were ordered. Additionally patient can be continued on 70/30, as patient is tolerating diet and eating at this time. Patient additionally will be started on sliding scale. Will titrate the insulin accordingly. Patient's hemoglobin A1C is consistent with uncontrolled diabetes mellitus.
[2016-08-16] MEDS: HYDROcodone/APAP 5-325MG 1 EACH TAB PO PRN ×3 (05:24→16:40)
[2016-08-16 07:07] LABS: Glucose,Whole Blood 203 mg/dL (75-99)
[2016-08-16 07:36] VITALS: BP 162/61; PULSE 89; RESP 18; TEMP 98.7
[2016-08-16] MEDS: INSULIN LISPRO (humaLOG) 300 UNIT/3 ML VIAL SQ SCH ×2 (07:38→12:46)
[2016-08-16] MEDS: INSULN ASP PRT/INSULIN ASPART 100 UNIT/ML 10 ML VIAL SQ SCH (07:38)
[2016-08-16] MEDS: DONEPEZIL 10 MG TAB PO SCH (07:40)
[2016-08-16] MEDS: POTASSIUM CHLORIDE ER 10 MEQ TAB.ER.PRT PO SCH (07:41)
[2016-08-16] MEDS: OXYBUTYNIN XL 5 MG TAB.ER.24 PO SCH (07:41)
[2016-08-16] MEDS: GABAPENTIN 300 MG CAP PO SCH (07:41)
[2016-08-16] MEDS: ATENOLOL 25 MG TAB PO SCH (07:42)
[2016-08-16] MEDS: VENLAFAXINE HCL ER 75 MG CAP PO SCH (07:42)
[2016-08-16] MEDS ORDERED: FUROSEMIDE 80 MG TAB PO SCH (09:00)
[2016-08-16] MEDS ORDERED: ISOSORBIDE MONONITRATE ER 30 MG TAB.ER.24H PO SCH (09:00)
[2016-08-16] MEDS ORDERED: ASPIRIN 81 MG CHEW PO SCH (09:00)
[2016-08-16] MEDS ORDERED: CLOPIDOGREL 75 MG TAB PO SCH (09:00)
--- NOTE | 2016-08-16 10:36 | P.PN ---
Subjective Principal diagnosis: Status post left shoulder closed reduction The patient is a 76 year old female who is status post closed reduction of her left shoulder after sustaining a fracture dislocation. Today is post-operative day #2 and we are awaiting rehab placement. She states her pain is controlled at this time. She is currently in an arm sling. She denies nausea, vomiting, abdominal pain, shortness of breath and chest pain this morning. Objective - Vital Signs Vital signs: Vital Signs Temp 98.7 F 08/16/16 07:15 Pulse 89 08/16/16 07:15 Resp 18 08/16/16 07:15 BP 162/61 08/16/16 07:15 Pulse Ox 93 L 08/16/16 07:15 Intake & Output 08/15/16 08/16/16 08/16/16 18:59 06:59 18:59 Intake Total 720 Balance 720 Intake: Oral 720 Other: Voiding Method Diaper Bedpan Bedpan Incontinent Diaper Diaper Incontinent Incontinent # Voids 5 1 1 - Exam The patient is in no acute distress. She is alert and oriented x3. She has some bruising to the right side of her face. Focused exam of the left upper extremity reveals the arm in a sling. She has full hand and wrist motion without problems. She has numbness to the left hand but this is due to chronic carpal tunnel and no changes to baseline is present. She has full elbow range of motion without difficulty. There is pain to palpation to the anterior shoulder. Neurological and circulatory status is intact. - Labs CBC & Chem 7: 08/14/16 05:45 08/14/16 05:45 Labs: Abnormal Lab Results - Last 24 Hours (Table) 08/15/16 08/15/16 08/15/16 Range/Units 11:35 17:21 19:58 POC Glucose (mg/dL) 269 H 238 H 267 H (75-99) mg/dL 08/16/16 Range/Units 07:03 POC Glucose (mg/dL) 203 H (75-99) mg/dL Assessment and Plan (1) Fall Status: Acute (2) Dislocation of left shoulder joint Status: Acute (3) Fracture of proximal end of humerus Status: Acute Plan: The clinical findings were discussed with the patient. She will remain in the sling at all times. Non-weightbearing to the left upper extremity. She will transfer to rehab either today or tomorrow depending on insurance requirements. Continue pain control. The patient will follow up with Dr. Bee next week for further care on an outpatient basis.
[2016-08-16 11:46] LABS: Glucose,Whole Blood 200 mg/dL (75-99)
--- NOTE | 2016-08-16 14:48 | PN ---
Patient is clinically doing well and patient's blood sugars are getting better. REVIEW OF SYSTEMS: CARDIOVASCULAR: No chest pain, no orthopnea, no PND, no palpitations. PULMONARY: Denied any shortness of breath. No cough or hemoptysis. GASTROINTESTINAL: No diarrhea, nausea or vomiting. No abdominal pain. Normoactive bowel sounds. NEUROLOGIC: No headaches, no weakness, no numbness. Medications were reviewed. PHYSICAL EXAMINATION: Temperature 98.7, pulse of 79, respiratory rate of 18, blood pressure 162/61. GENERAL EXAMINATION: Morbidly obese, alert and oriented x3. HEENT: Pupils are round and equally reacting to light. EOMI. No scleral icterus. No conjunctival pallor. Normocephalic, atraumatic. No pharyngeal erythema. No thyromegaly. CARDIOVASCULAR: S1 and S2 present. No murmurs, rubs, or gallops. PULMONARY: Chest is clear to auscultation, no wheezing or crackles. ABDOMEN: Soft, nontender, nondistended, normoactive bowel sounds. No palpable organomegaly. MUSCULOSKELETAL: No joint swelling or deformity. EXTREMITIES: No cyanosis, clubbing, or pedal edema. NEUROLOGICAL: Gross neurological examination did not reveal any focal deficits. SKIN: No rashes. LABORATORY DATA: None available from today. ASSESSMENT AND PLAN: 1. Mechanical fall, status post left shoulder arthroplasty, postoperative day 2. 2. Coronary artery disease. 3. Type 2 diabetes mellitus. 4. Morbid obesity. 5. Obstructive sleep apnea. 6. Hyperlipidemia. 7. Hypertension. 8. Gastroesophageal reflux disease. 9. Degenerative joint disease. 10. Fibromyalgia. 11. Leukocytosis which is reactive. Plan is to continue with present medications. No further recommendations. Patient's blood sugars are getting better because of which I am not changing the insulin regimen. Will continue to follow the patient on an as-needed basis. Change the insulin regimen accordingly. Patient is awaiting disposition to subacute rehab.
--- NOTE | 2016-08-16 15:43 | P.DS ---
Providers Expected date of discharge: 08/16/16 Attending physician: Matteo Bee Consults: 08/15/16 15:12 Consult Physician Routine Consulting Provider: Kasia Reddy Consult Reason/Comments: Medical Management Do you want consulting provider notified?: Yes Primary care physician: Ezra Alvarez - Discharge Diagnosis(es) (1) Fall Current Visit: Yes Status: Acute (2) Dislocation of left shoulder joint Current Visit: Yes Status: Acute (3) Fracture of proximal end of humerus Current Visit: Yes Status: Acute Hospital Course: The patient is a 76-year-old female who is status post closed reduction of her left shoulder after sustaining a fall at home on 08/14/2016. She was found to have a fracture dislocation of her left proximal humerus and shoulder joint. And underwent a closed reduction on 08/14/[address] Bee. On the day discharge, she is doing well. The patient is in no acute distress. She is alert and oriented 3. Labs and vital signs are stable. She some bruising to the right side of her face. Exam of the left upper extremity reveals the arm in a sling. She has full hand and wrist motion without problems. She has numbness to the left hand but this is due to chronic carpal tunnel and no changes to baseline are present. She is full elbow range of motion without difficulty. She has pain to palpation to the anterior shoulder. Neurological and circulatory status is intact. The patient is orthopedically stable for discharge to skilled rehab today. Pertinent Studies: Laboratory Tests 08/14/16 05:45 WBC 14.1 H RBC 4.21 Hgb 12.4 Patient Condition at Discharge: Stable Plan - Discharge Summary New Discharge Prescriptions: HYDROcodone/APAP 7.5-325MG [[place] 7.5] 1 - 2 each PO Q6HR PRN #60 tab PRN Reason: Pain Discharge Medication List ALPRAZolam 0.5 mg PO TID PRN 10/16/13 [History] Atorvastatin [Lipitor] 40 mg PO HS 10/16/13 [History] Clopidogrel [Plavix] 75 mg PO DAILY 10/16/13 [History] Donepezil [Aricept] 10 mg PO BID 10/16/13 [History] Gabapentin [Neurontin] 600 mg PO BID 10/16/13 [History] Insuln Asp Prt/Insulin Aspart [NovoLOG MIX 70-30 VIAL] 70 units SQ AC-BID [History] Multivitamins with Iron [Daily Multivitamin with Iron] 1 tab PO DAILY 10/16/13 [ History] Oxybutynin Chloride [Oxybutynin Chloride ER] 5 mg PO BID 10/16/13 [History] Potassium Chloride [K-Tab ER] 10 meq PO BID 10/16/13 [History] Cholecalciferol [Vitamin D3] 1,000 unit PO BID 01/14/15 [History] Furosemide [Lasix] 40 mg PO AC-SUPPER 01/14/15 [History] Furosemide [Lasix] 80 mg PO QAM 01/14/15 [History] [place]-3 Fatty Acids/Fish Oil [Fish Oil 1,000 mg Softgel] 1 cap PO BID 01/14/15 [ History] Venlafaxine HCl ER [Effexor XR] 75 mg PO BID 01/14/15 [History] Aspirin EC [Ecotrin Low Dose] 81 mg PO DAILY tablet. 01/16/15 [Rx] Isosorbide Mononitrate ER [Imdur] 30 mg PO DAILY #30 tab 01/16/15 [Rx] Hydrocodone/Acetaminophen [[place] 5-325] 1 each PO Q6HR PRN #60 tab 03/13/15 [Rx] Atenolol [Tenormin] 25 mg PO BID 10/28/15 [History] Losol Iodine Drops 6 drops PO BID 10/28/15 [History] HYDROcodone/APAP 7.5-325MG [[place] 7.5] 1 - 2 each PO Q6HR PRN #60 tab 08/14/16 [ Rx] Follow up Appointment(s)/Referral(s): Ezra Alvarez DO [Primary Care Provider] - 08/18/16 9:00 am Matteo Bee MD [STAFF PHYSICIAN] - 08/22/16 2:00 pm Patient Instructions/Handouts: *Surgery [facility] - (Anesthesia) Discharge Instructions Outpatient Surgery, Shoulder Dislocation (GEN) Activity/Diet/Wound Care/Special Instructions: 1. Arm sling at all times. May remove sling for hygiene and to perform gentle exercise with elbow,wrist and hand. 2. Recliner chair for sleeping recommended. 3. Follow up in 1 week with either myself (Cristal) or your regular orthopedic surgeon (Dr. Gómez). 4. May apply ice to shoulder 20-25 min each hour if needed. Discharge Disposition: HOME SELF-CARE
== END 2016-08-16 17:10 ==
LOC: EC 03:20 → OR 08:49 → 3SUR 11:31 → OR 08-16 17:10
PROVIDERS: ATTEND Orthopaedic Surgery
DX: S43.005A Unspecified dislocation of left shoulder joint, initial encounter (principal); S42.202A Unspecified fracture of upper end of left humerus, initial encounter for closed fracture; S00.11XA Contusion of right eyelid and periocular area, initial encounter; W19.XXXA Unspecified fall, initial encounter; Y92.002 Bathroom of unspecified non-institutional (private) residence as the place of occurrence of the external cause; E66.01 Morbid (severe) obesity due to excess calories; J98.11 Atelectasis; D72.829 Elevated white blood cell count, unspecified; I44.0 Atrioventricular block, first degree; E11.9 Type 2 diabetes mellitus without complications; I25.119 Atherosclerotic heart disease of native coronary artery with unspecified angina pectoris; Z95.5 Presence of coronary angioplasty implant and graft; E78.5 Hyperlipidemia, unspecified; I10 Essential (primary) hypertension; G47.33 Obstructive sleep apnea (adult) (pediatric); M79.7 Fibromyalgia; K21.9 Gastro-esophageal reflux disease without esophagitis; M19.90 Unspecified osteoarthritis, unspecified site; M50.30 Other cervical disc degeneration, unspecified cervical region; G89.29 Other chronic pain; I87.8 Other specified disorders of veins; Z96.651 Presence of right artificial knee joint; F41.9 Anxiety disorder, unspecified; F32.9 Major depressive disorder, single episode, unspecified; I25.2 Old myocardial infarction; Z85.3 Personal history of malignant neoplasm of breast; Z79.02 Long term (current) use of antithrombotics/antiplatelets; Z79.891 Long term (current) use of opiate analgesic; Z79.82 Long term (current) use of aspirin; Z79.4 Long term (current) use of insulin; Z79.899 Other long term (current) drug therapy; Z88.0 Allergy status to penicillin; Z88.8 Allergy status to other drugs, medicaments and biological substances; Z91.048 Other nonmedicinal substance allergy status; Z87.891 Personal history of nicotine dependence
CPT/HCPCS: 23929; 23675; 99285; 96374; 96375; 96361; 36415; 93005; 97530; 97162; 97166; 80053; 83036; 83735; 85025; 85610; 85730; 71010; 72072; 73020; 73060; 72125; 70450; 73200; J2250; J2001; J1170; J0131; J0330; J2704

== ENCOUNTER 2016-10-03 12:09 | Day surgery (SDC) | payer MEDICARE ==
[2016-10-03 12:44] VITALS: RESP 16; TEMP 98
[2016-10-03 13:17] LABS: Glucose,Whole Blood 128 mg/dL (75-99)
[2016-10-03 13:54] VITALS: BP 129/60; PULSE 50
--- NOTE | 2016-10-03 14:21 | US ---
ULTRASOUND GUIDED FNA THYROID BIOPSY: CLINICAL HISTORY: Right thyroid nodule FINDINGS: The procedure was explained to the patient. The risks, complications, benefits and alternatives were discussed and any questions were answered. Informed consent was obtained. Patient was placed supin e on the ultrasound table and prepped and draped in the usual sterile fashion. Utilizing a 25 gauge needle, five passes were made into the requested right thyroid nodule. Patient was stable throughout the procedure. Pathology is pending. All elements of maximal barrier technique were utilized. IMPRESSION: 1. Successful ultrasound guided FNA thyroid biopsy.
== END 2016-10-03 14:05 | disposition home or self-care (01) ==
LOC: RADPROMAIN 12:09
PROVIDERS: ATTEND Family Medicine
DX: E04.1 Nontoxic single thyroid nodule (principal)
CPT/HCPCS: 10022; 76942; 88173; 88305

== ENCOUNTER → 2017-01-23 | Outpatient (CLI) | payer MEDICARE ==
--- NOTE | 2017-01-23 10:55 | BD ---
EXAMINATION TYPE: MG DEXA axial skeleton. DATE OF EXAM: 01/23/2017 COMPARISON: 2003 CLINICAL HISTORY: OSTEOARTHRITIS Height: 5'2 Weight: 275 FRAX RISK QUESTIONS: Alcohol (3 or more units per day): no Family History (Parent hip fracture): no Glucocorticoids (More than 3mos): no (Ex: prednisone, prednisolone, methylprednisolone, dexamethasone, and hydrocortisone). History of Fracture in Adulthood: no Secondary Osteoporosis: 1. Type 1 Diabetes: no 2. Hyperthyroidism: no 3. Menopause before 45: no 4. Malnutrition: no 5. Chronic liver disease: no Rheumatoid Arthritis: no Current Tobacco Use: no RISK FACTORS HISTORY OF: Active: Postmenopausal woman: Frequent falls: MEDICATIONS: Additional Medications: blood pressure, cholesterol, blood thinner, heart stents Additional History: breast cancer 2002 EXAM MEASUREMENTS: Bone mineral densitometry was performed using the [employer] System. Bone mineral density as measured about the Lumbar spine is: ----- L1-L4(G/cm2): 1.530 T Score Values are as follows: ----- L2: 1.7 ----- L3: 3.4 ----- L4: 3.9 ----- L1-L4: 2.9 Bone mineral density has: Increased 20% since study of: 06/01/2004 Bone mineral density about the R hip (g/cm2): 0.770 Bone mineral density about the L hip (g/cm2): 0.885 T Score values are as follows: -----R Neck: -1.9 -----L Neck: -1.1 -----R Total: -0.5 -----L Total: -1.2 Bone mineral density has: Decreased -16.5% since study of: 06/01/2004 IMPRESSION: Osteopenia (T Score between -2.5 and -1 as noted by T score values Neil Hips There is slightly increased risk of fracture and the patient may be considered for treatment. Re-Screen 2-5 years. NOTE: T-SCORE=SD OF THE YOUNG ADULT MEAN.
== END | disposition home or self-care (01) ==
LOC: RADBDWWP 08:18
PROVIDERS: ATTEND Family Medicine
DX: M85.88 Other specified disorders of bone density and structure, other site (principal)
CPT/HCPCS: 77080

== ENCOUNTER → 2017-03-24 | Outpatient (CLI) | payer MEDICARE ==
--- NOTE | 2017-03-24 13:51 | US ---
EXAMINATION TYPE: US thyroid st tissue head/neck DATE OF EXAM: 03/24/2017 COMPARISON: 10/03/2016 and 09/16/2016 CLINICAL HISTORY: Nodule E04.1. Follow up thyroid nodules GLAND SIZE: Right Lobe: 6.5 x 2.9 x 2.6 cm Overall Parenchyma: heterogenous Left Lobe: 5.7 x 2.0 x 2.2 cm Overall Parenchyma: heterogeneous Isthmus Thickness: 0.5 cm NODULES RIGHT: # of nodules measured on right: 3 1. 2.3 X 1.4 x 1.4 cm hypoechoic solid nodule at the lower pole with well-defined margins; . This nodule is wider than tall and shows no intranodular vascularity. Prior size: 2.2 x 1.5 x 1.5 cm . This was noted to be previously biopsied on 10/03/2016. 2. 1.0 X 0.8 x 1.0 cm cystic nodule at the lower pole with well-defined margins; . This nodule is w ider than tall and shows no intranodular vascularity. Prior size: 1.1 x 0.9 x 1.1 cm 3. 1.2 X 1.0 x 1.3 cm cystic nodule at the lower pole with well-defined margins; . This nodule is w ider than tall and shows no intranodular vascularity. Prior size: 1.1 x 0.8 x 1.1 cm LEFT: # of nodules measured on left: 0 ISTHMUS: # of nodules measured in the isthmus: 0 Bilateral neck scanned, no evidence of lymphadenopathy. Enlarged and heterogeneous thyroid gland IMPRESSION: 1. Overall stability of two of the right thyroid nodules including the previously biopsied 2.3 cm inf erior thyroid nodule. Cystic right thyroid nodule has minimally increased in size in comparison to th e exam of 09/16/2016. 2. Enlarged and heterogenous thyroid gland, most compatible with a multinodular goiter.
== END ==
LOC: RADUSWWP 12:59
PROVIDERS: ATTEND Family Medicine
DX: E04.2 Nontoxic multinodular goiter (principal)
CPT/HCPCS: 76536

== ENCOUNTER 2017-07-17 10:44 | Emergency (ER) | payer MEDICARE ==
[2017-07-17 10:59] VITALS: BP 191/78; PULSE 56; RESP 16; TEMP 97.8
--- NOTE | 2017-07-17 11:00 | ED ---
Fall HPI - General Stated Complaint: Fall/Head injury Time Seen by Provider: 07/17/17 10:44 Source: patient, EMS, RN notes reviewed - History of Present Illness Initial Comments: This is 77-year-old female who fell she got out of bed. She hit her face on the floor. She had no loss of consciousness but did complain some facial pain and head pain. No neck pain no other injuries reported she did have a recent left humerus fracture that is feeling by secondary intent. Patient did come in by ambulance with a cervical collar in place MD Complaint: fall - Related Data Home Medications Medication Instructions Recorded Confirmed Atorvastatin [Lipitor] 40 mg PO HS 10/16/13 07/17/17 Clopidogrel [Plavix] 75 mg PO DAILY 10/16/13 07/17/17 Donepezil [Aricept] 10 mg PO BID 10/16/13 07/17/17 Gabapentin [Neurontin] 600 mg PO BID 10/16/13 07/17/17 Insuln Asp Prt/Insulin Aspart 50 units SQ AC-BID 10/16/13 07/17/17 [NovoLOG MIX 70-30 VIAL] Potassium Chloride [K-Tab ER] 10 meq PO BID 10/16/13 07/17/17 Furosemide [Lasix] 40 mg PO BID 01/14/15 07/17/17 Venlafaxine HCl ER [Effexor XR] 75 mg PO BID 01/14/15 07/17/17 Atenolol [Tenormin] 25 mg PO BID 10/28/15 07/17/17 ALPRAZolam [Xanax] 0.5 mg PO BID PRN 09/22/16 07/17/17 Aspirin 81 mg PO DAILY 07/17/17 07/17/17 Cholecalciferol [Vitamin D3] 1,000 unit PO BID 07/17/17 07/17/17 Hydrocodone/Acetaminophen [Halma 1 tab PO Q6HR PRN 07/17/17 07/17/17 5-325] Multivitamins, Thera [Multivitamin 1 tab PO DAILY 07/17/17 07/17/17 (formulary)] Naproxen [Naprosyn] 500 mg PO Q12HR PRN 07/17/17 07/17/17 Oxybutynin Chloride [Ditropan] 10 mg PO BID 07/17/17 07/17/17 Terbinafine HCl [LamISIL] 250 mg PO DAILY 07/17/17 07/17/17 clonazePAM [KlonoPIN] 2 mg PO BID 07/17/17 07/17/17 Previous Rx's Medication Instructions Recorded Isosorbide Mononitrate ER [Imdur] 30 mg PO DAILY #30 tab 01/16/15 Allergies Allergy/AdvReac Type Severity Reaction Status Date / Time mineral oil [Mineral Oil] Allergy Rash/Hives Verified 07/17/17 11:03 nickel Allergy Rash/Hives Verified 07/17/17 11:03 Penicillins Allergy Anaphylaxis Verified 07/17/17 11:03 dove soap Allergy Rash/Hives Uncoded 10/03/16 12:44 Review of Systems ROS Statement: Those systems with pertinent positive or pertinent negative responses have been documented in the HPI. ROS Other: All systems not noted in ROS Statement are negative. Past Medical History Past Medical History: Coronary Artery Disease (CAD), Cancer, Chest Pain / Angina , Diabetes Mellitus, Eye Disorder, Fibromyalgia, GERD/Reflux, Hyperlipidemia, Hypertension, Myocardial Infarction (ME), Osteoarthritis (OA) Additional Past Medical History / Comment(s): HX STRESS INCONTINENCE, CHRONIC BACK PAIN, BREAST CANCER, GLASSES TO READ Last Myocardial Infarction Date:: 05/09/2012 History of Any Multi-Drug Resistant Organisms: None Reported Past Surgical History: Appendectomy, Breast Surgery, Heart Catheterization With Stent Additional Past Surgical History / Comment(s): EXT. CATARACT WITH LENS IMPLANT RAZIA.,LAST CARDIAC STENT 01/14/15-TOTAL 2 STENTS, colonscopy,RAZIA. BREAST LUMPECTOMY. 03-10-15 total rt knee replacement. Past Anesthesia/Blood Transfusion Reactions: No Reported Reaction Additional Past Anesthesia/Blood Transfusion Reaction / Comment(s): ALLERGY TO NICKEL Date of Last Stent Placement:: 01/14/15 Past Psychological History: Anxiety, Depression Additional Psychological History / Comment(s): pt lives at home with her husand. uses a cane/walker when up. gets no outside services into the home. Smoking Status: Former smoker Past Alcohol Use History: None Reported Additional Past Alcohol Use History / Comment(s): smoked from age [age] 1/2 pp week,quit 1965 Past Drug Use History: None Reported - Past Family History Brother(s) Family Medical History: CVA/TIA Additional Family Medical History / Comment(s): HX BLOOD CLOTS Mother History Unknown: Yes Family Medical History: Cancer Additional Family Medical History / Comment(s): Lung CA, Bone CA, Father Family Medical History: CVA/TIA, Myocardial Infarction (ME) General Exam - General Exam Comments Initial Comments: This a well-developed well-nourished awake alert oriented 3 female she demonstrates a Shania Coma Scale of 15. Limitations: physical limitation General appearance: alert, anxious Head exam: Present: other (Ecchymosis seen over the left orbit with abrasion to the inferior left eyelid. Is a hematoma noted over the left forehead and frontal scalp. No definite open was.) Eye exam: Present: normal appearance, PERRL, EOMI. Absent: scleral icterus, conjunctival injection, periorbital swelling ENT exam: Present: normal exam, mucous membranes moist Neck exam: Present: normal inspection. Absent: tenderness, meningismus, lymphadenopathy Respiratory exam: Present: normal lung sounds bilaterally. Absent: respiratory distress, wheezes, rales, rhonchi, stridor Cardiovascular Exam: Present: regular rate, normal rhythm, normal heart sounds. Absent: systolic murmur, diastolic murmur, rubs, gallop, clicks GI/Abdominal exam: Present: soft, normal bowel sounds, other (Obese abdomen). Absent: distended, tenderness, guarding, rebound, rigid Extremities exam: Present: normal inspection, full ROM, normal capillary refill. Absent: tenderness, pedal edema, joint swelling, calf tenderness Back exam: Present: normal inspection Neurological exam: Present: alert, oriented X3, CN II-XII intact Psychiatric exam: Present: normal affect, normal mood Skin exam: Present: warm, dry, intact, normal color. Absent: rash Course Vital Signs 07/17/17 10:49 Temperature 97.8 F Pulse Rate 56 L Respiratory 16 Rate Blood Pressure 191/78 - Reevaluation(s) Reevaluation #1: 07/17/17 11:00 Patient was activated as a priority 2 due to the fall with a hematoma and the reports of blood thinners. I did discuss the case with Dr. Ivory. Medical Decision Making - Medical Decision Making I did discuss findings with patient family members patient was hydrated family without difficulty she will be discharged - Lab Data Result diagrams: 07/17/17 11:00 07/17/17 11:00 Lab Results 07/17/17 07/17/17 07/17/17 Range/Units 11:00 11:00 11:00 WBC 7.8 (3.8-10.6) k/uL RBC 4.19 (3.80-5.40) m/uL Hgb 12.6 (11.4-16.0) gm/dL Hct 38.5 (34.0-46.0) % MCV 91.7 (80.0-100.0) fL MCH 30.0 (25.0-35.0) pg MCHC 32.7 (31.0-37.0) g/dL RDW 13.3 (11.5-15.5) % Plt Count 248 (150-450) k/uL Neutrophils % 53 % Lymphocytes % 33 % Monocytes % 7 % Eosinophils % 4 % Basophils % 0 % Neutrophils # 4.2 (1.3-7.7) k/uL Lymphocytes # 2.6 (1.0-4.8) k/uL Monocytes # 0.6 (0-1.0) k/uL Eosinophils # 0.3 (0-0.7) k/uL Basophils # 0.0 (0-0.2) k/uL PT (9.0-12.0) sec INR (<1.2) APTT (22.0-30.0) sec Sodium 141 (137-145) mmol/L Potassium 4.2 (3.5-5.1) mmol/L Chloride 99 (98-107) mmol/L Carbon Dioxide 33 H (22-30) mmol/L Anion Gap 9 mmol/L BUN 18 H (7-17) mg/dL Creatinine 0.85 (0.52-1.04) mg/dL Est GFR (MDRD) Af Amer >60 (>60 ml/min/1.73 sqM) Est GFR (MDRD) Non-Af >60 (>60 ml/min/1.73 sqM) Glucose 158 H (74-99) mg/dL Plasma Lactic Acid Kalpesh (0.7-2.0) mmol/L Calcium 9.2 (8.4-10.2) mg/dL Total Bilirubin 0.4 (0.2-1.3) mg/dL AST 26 (14-36) U/L ALT 31 (9-52) U/L Alkaline Phosphatase 87 (38-126) U/L Total Creatine Kinase (30-135) U/L CK-MB (CK-2) (0.0-2.4) ng/mL CK-MB (CK-2) Rel Index Troponin I (0.000-0.034) ng/mL Total Protein 6.5 (6.3-8.2) g/dL Albumin 3.4 L (3.5-5.0) g/dL Amylase <30 L (30-110) U/L Lipase 52 (23-300) U/L Serum Alcohol <10 mg/dL Blood Type A Positive Blood Type Recheck A Pos Antibody Screen NEGATIVE Spec Expiration Date 07/20/2017 - 229907/17/17 07/17/17 07/17/17 Range/Units 11:00 11:00 11:00 WBC (3.8-10.6) k/uL RBC (3.80-5.40) m/uL Hgb (11.4-16.0) gm/dL Hct (34.0-46.0) % MCV (80.0-100.0) fL MCH (25.0-35.0) pg MCHC (31.0-37.0) g/dL RDW (11.5-15.5) % Plt Count (150-450) k/uL Neutrophils % % Lymphocytes % % Monocytes % % Eosinophils % % Basophils % % Neutrophils # (1.3-7.7) k/uL Lymphocytes # (1.0-4.8) k/uL Monocytes # (0-1.0) k/uL Eosinophils # (0-0.7) k/uL Basophils # (0-0.2) k/uL PT 9.7 (9.0-12.0) sec INR 1.0 (<1.2) APTT 22.3 (22.0-30.0) sec Sodium (137-145) mmol/L Potassium (3.5-5.1) mmol/L Chloride (98-107) mmol/L Carbon Dioxide (22-30) mmol/L Anion Gap mmol/L BUN (7-17) mg/dL Creatinine (0.52-1.04) mg/dL Est GFR (MDRD) Af Amer (>60 ml/min/1.73 sqM) Est GFR (MDRD) Non-Af (>60 ml/min/1.73 sqM) Glucose (74-99) mg/dL Plasma Lactic Acid Kalpesh 1.4 (0.7-2.0) mmol/L Calcium (8.4-10.2) mg/dL Total Bilirubin (0.2-1.3) mg/dL AST (14-36) U/L ALT (9-52) U/L Alkaline Phosphatase (38-126) U/L Total Creatine Kinase 41 (30-135) U/L CK-MB (CK-2) 0.7 (0.0-2.4) ng/mL CK-MB (CK-2) Rel Index 1.7 Troponin I <0.012 (0.000-0.034) ng/mL Total Protein (6.3-8.2) g/dL Albumin (3.5-5.0) g/dL Amylase (30-110) U/L Lipase (23-300) U/L Serum Alcohol mg/dL Blood Type Blood Type Recheck Antibody Screen Spec Expiration Date - EKG Data -: EKG Interpreted by Me EKG shows normal: sinus rhythm (Sinus bradycardia rate of 53 MA interval 194 QRS duration 84 QT since QTC of 42/[address]-T wave changes.) - Radiology Data Radiology results: report reviewed (I did review the imaging and reports no acute findings except for the hematoma was noted), image reviewed Disposition Clinical Impression: Fall, Dehydration Disposition: HOME SELF-CARE Condition: Good Instructions: Fall Prevention for Older Adults (ED), Dehydration (ED) Referrals: Ezra Alvarez DO [Primary Care Provider] - 1-2 days
--- NOTE | 2017-07-17 11:12 | XR ---
EXAMINATION TYPE: XR chest 1V portable DATE OF EXAM: 07/17/2017 COMPARISON: Chest x-ray August 14, 2016 HISTORY: Falling injury with pain TECHNIQUE: 2 AP portable frontal supine views of the chest are obtained. FINDINGS: There is no focal air space opacity, pleural effusion, or pneumothorax seen. The cardiac silhouette size is enlarged. Surgical clips are redemonstrated overlying the the right axilla. Callus formation is noted at site of displaced left shoulder fracture. IMPRESSION: Cardiomegaly without acute pulmonary process.
--- NOTE | 2017-07-17 11:20 | XR ---
EXAMINATION TYPE: XR pelvis AP view DATE OF EXAM: 07/17/2017 CLINICAL HISTORY: Fall injury with pain TECHNIQUE: A single AP view of the pelvis is obtained. COMPARISON: Pelvic x-ray December 15, 2009. FINDINGS: Exam is suboptimal due to portable technique, demineralization, and patient's large body h abitus. There is no acute fracture/dislocation evident in the pelvis. Mild to moderate acetabular spu rring in both hips is seen. Sacroiliac joints are maintained bilaterally. Vascular calcification and phleboliths in pelvis are noted, vascular calcification extends into left groin. IMPRESSION: There is no acute fracture or dislocation in the pelvis.
[2017-07-17 11:24] LABS: Eosinophils % (A) 4 %; HGB 12.6 gm/dL (11.4-16.0); Lymphocytes # (A) 2.6 k/uL (1.0-4.8); MCV 91.7 fL (80.0-100.0); Platelet Count 248 k/uL (150-450)
[2017-07-17 11:29] LABS: Basophils % (A) 0 %; Eosinophils # (A) 0.3 k/uL (0-0.7); HCT 38.5 % (34.0-46.0); Lymphocytes % (A) 33 %; MCHC 32.7 g/dL (31.0-37.0); Mean Platelet Volume 7.1; Monocytes # (A) 0.6 k/uL (0-1.0); Monocytes % (A) 7 %; Neutrophils # (A) 4.2 k/uL (1.3-7.7); Neutrophils % (A) 53 %; RBC 4.19 m/uL (3.80-5.40); RDW 13.3 % (11.5-15.5); WBC 7.8 k/uL (3.8-10.6)
[2017-07-17 11:34] LABS: ALT 31 U/L (9-52); AST 26 U/L (14-36); Albumin 3.4 g/dL (3.5-5.0); Alcohol <10 mg/dL; Alkaline Phosphatase 87 U/L (38-126); Amylase <30 U/L (30-110); Anion Gap 9 mmol/L; Blood Urea Nitrogen 18 mg/dL (7-17); Calcium 9.2 mg/dL (8.4-10.2); Carbon Dioxide 33 mmol/L (22-30); Chloride 99 mmol/L (98-107); Glucose 158 mg/dL (74-99); Lipase 52 U/L (23-300); Potassium 4.2 mmol/L (3.5-5.1); Sodium 141 mmol/L (137-145); Total Bilirubin 0.4 mg/dL (0.2-1.3); Total Protein 6.5 g/dL (6.3-8.2)
[2017-07-17 11:37] LABS: Partial Thromboplastin Time 22.3 sec (22.0-30.0); Prothrombin Time 9.7 sec (9.0-12.0)
--- NOTE | 2017-07-17 11:46 | CT ---
EXAMINATION TYPE: CT brain david mccall DATE OF EXAM: 07/17/2017 COMPARISON: NONE HISTORY: Fall today with Left frontal injury. CT DLP: [address] of the brain was performed. The ventricles, basal cisterns and sulci overlying the cerebral convexities demonstrate mild enlargem ent. There is no evidence for intracranial hemorrhage or sulcal effacement. There is decreased attenuatio n about the periventricular white matter and deep white matter of both cerebral hemispheres, compatib le with chronic small vessel ischemia. No mass effects are seen. If symptoms persist consider MRI. Osseous calvarium is intact. Left frontal scalp hematoma. Left periorbital soft tissue edema. IMPRESSION: 1. Age related atrophic and chronic small vessel ischemic change without acute intracranial process seen at this time. CT Cervical Spine: Unenhanced CT of the cervical spine was performed with bone and soft tissue window settings submitted . Coronal and sagittal reconstruction is obtained. There is normal alignment and prevertebral soft tissues. No evidence for acute cervical fracture . Scattered degenerative disc disease and spondylosis. Biapical scarring. IMPRESSION: 1. No evidence for acute fracture or subluxation of the cervical spine.
--- NOTE | 2017-07-17 11:50 | CT ---
EXAMINATION TYPE: CT facial bones wo con DATE OF EXAM: 07/17/2017 COMPARISON: 01/31/2010 and 08/14/2016 HISTORY: Fall today with Left frontal injury. CT DLP: [address] of the facial bones was performed in the axial and coronal planes. Bone and soft tissu e window settings are submitted. There is left frontal scalp hematoma moderate in size with left periorbital soft tissue edema. I do not see evidence for displaced facial bone fracture or depressed facial bone fracture. The globes are intact. No air-fluid levels identified. Mild mucosal thickening sphenoid sinus and right maxillary sinus. 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 Findings are unchanged from CT of the brain dated 02/01/2000 IMPRESSION: 1. No evidence for depressed or displaced facial bone fracture.
[2017-07-17 12:07] LABS: Creatine Kinase 41 U/L (30-135)
[2017-07-17 12:19] LABS: Creatine Kinase MB 0.7 ng/mL (0.0-2.4); Troponin I <0.012 ng/mL (0.000-0.034)
[2017-07-17 14:08] LABS: Appearance,Urine Clear (Clear); Bacteria,Urine Many /hpf; Bilirubin,Urine Negative (Negative); Blood,Urine Negative (Negative); Color,Urine Light Yellow; Glucose,Urine (UA) Negative (Negative); Hyaline Casts,Urine 3 /lpf (0-2); Ketones,Urine Negative (Negative); Leukocyte Esterase,Urine Moderate (Negative); Mucus,Urine Rare /hpf; Nitrite,Urine Positive (Negative); PH, Urine 6.5 (5.0-8.0); Protein,Urine Negative (Negative); Specific Gravity,Urine 1.011 (1.001-1.035); Squamous Epithelial Cell,Urine 1 /hpf (0-4); Urobilinogen,Urine <2.0 mg/dL (<2.0); WBC,Urine 7 /hpf (0-5)
[2017-07-17 14:20] LABS: Amphetamine Screen,Urine Not Detected (NotDetected); Barbiturate Screen,Urine Not Detected (NotDetected); Benzodiazepines Screen,Urine Detected (NotDetected); Cocaine Screen,Urine Not Detected (NotDetected); Methadone Screen, Urine Not Detected (NotDetected); Opiate Screen,Urine Not Detected (NotDetected); Oxycodone Screen, Urine Not Detected (NotDetected); Phencyclidine Screen,Urine Not Detected (NotDetected); Tricyclic Antidepressant,Urine Not Detected (NotDetected); Urn Cannabinoid Scrn Not Detected (NotDetected)
== END 2017-07-17 14:00 | disposition home or self-care (01) ==
LOC: EC 10:44
DX: S00.03XA Contusion of scalp, initial encounter (principal); S05.12XA Contusion of eyeball and orbital tissues, left eye, initial encounter; E86.0 Dehydration; I25.10 Atherosclerotic heart disease of native coronary artery without angina pectoris; E11.9 Type 2 diabetes mellitus without complications; M79.7 Fibromyalgia; E78.5 Hyperlipidemia, unspecified; I25.2 Old myocardial infarction; F41.9 Anxiety disorder, unspecified; I10 Essential (primary) hypertension; M19.90 Unspecified osteoarthritis, unspecified site; F32.9 Major depressive disorder, single episode, unspecified; Z85.3 Personal history of malignant neoplasm of breast; Z87.891 Personal history of nicotine dependence; Z88.0 Allergy status to penicillin; Z88.8 Allergy status to other drugs, medicaments and biological substances; Z91.048 Other nonmedicinal substance allergy status; Z91.018 Allergy to other foods; Z79.4 Long term (current) use of insulin; Z79.02 Long term (current) use of antithrombotics/antiplatelets; Z79.82 Long term (current) use of aspirin; Z79.899 Other long term (current) drug therapy; W06.XXXA Fall from bed, initial encounter; Y92.009 Unspecified place in unspecified non-institutional (private) residence as the place of occurrence of the external cause
CPT/HCPCS: 36415; 70450; 70486; 71045; 72125; 72170; 80053; 80306; 80320; 81001; 82150; 82550; 82553; 83605; 83690; 84484; 85025; 85610; 85730; 86850; 86900; 86901; 93005; 99284

== ENCOUNTER 2017-09-19 05:09 | Emergency (ER) | payer MEDICARE ==
[2017-09-19 05:16] VITALS: BP 132/85; PULSE 71; RESP 20; TEMP 96.3
--- NOTE | 2017-09-19 05:41 | ED ---
General Adult HPI - General Chief complaint: ENT Stated complaint: nose bleed Time Seen by Provider: 09/19/17 05:23 Source: patient, family, RN notes reviewed Mode of arrival: wheelchair Limitations: no limitations - History of Present Illness Initial comments: Patient is a pleasant 77-year-old female presenting to the emergency Department with left-sided epistaxis. Onset was around 3:30. No trauma. No history of similar symptoms previously. Patient does take Plavix however is unclear why. No other areas of bleeding. Patient states she does feel bleeding down the back of her throat. - Related Data Home Medications Medication Instructions Recorded Confirmed Atorvastatin [Lipitor] 40 mg PO HS 10/16/13 07/17/17 Clopidogrel [Plavix] 75 mg PO DAILY 10/16/13 07/17/17 Donepezil [Aricept] 10 mg PO BID 10/16/13 07/17/17 Gabapentin [Neurontin] 600 mg PO BID 10/16/13 07/17/17 Insuln Asp Prt/Insulin Aspart 50 units SQ AC-BID 10/16/13 07/17/17 [NovoLOG MIX 70-30 VIAL] Potassium Chloride [K-Tab ER] 10 meq PO BID 10/16/13 07/17/17 Furosemide [Lasix] 40 mg PO BID 01/14/15 07/17/17 Venlafaxine HCl ER [Effexor XR] 75 mg PO BID 01/14/15 07/17/17 Atenolol [Tenormin] 25 mg PO BID 10/28/15 07/17/17 ALPRAZolam [Xanax] 0.5 mg PO BID PRN 09/22/16 07/17/17 Aspirin 81 mg PO DAILY 07/17/17 07/17/17 Cholecalciferol [Vitamin D3] 1,000 unit PO BID 07/17/17 07/17/17 Hydrocodone/Acetaminophen [Boyce 1 tab PO Q6HR PRN 07/17/17 07/17/17 5-325] Multivitamins, Thera [Multivitamin 1 tab PO DAILY 07/17/17 07/17/17 (formulary)] Naproxen [Naprosyn] 500 mg PO Q12HR PRN 07/17/17 07/17/17 Oxybutynin Chloride [Ditropan] 10 mg PO BID 07/17/17 07/17/17 Terbinafine HCl [LamISIL] 250 mg PO DAILY 07/17/17 07/17/17 clonazePAM [KlonoPIN] 2 mg PO BID 07/17/17 07/17/17 Previous Rx's Medication Instructions Recorded Isosorbide Mononitrate ER [Imdur] 30 mg PO DAILY #30 tab 01/16/15 Azithromycin [Zithromax Z-pack] 250 mg PO DAILY #4 tab 09/19/17 Allergies Allergy/AdvReac Type Severity Reaction Status Date / Time mineral oil [Mineral Oil] Allergy Rash/Hives Verified 09/19/17 05:16 nickel Allergy Rash/Hives Verified 09/19/17 05:16 Penicillins Allergy Anaphylaxis Verified 09/19/17 05:16 dove soap Allergy Rash/Hives Uncoded 09/19/17 05:16 Review of Systems ROS Statement: Those systems with pertinent positive or pertinent negative responses have been documented in the HPI. ROS Other: All systems not noted in ROS Statement are negative. Constitutional: Denies: fever Eyes: Denies: eye pain ENT: Reports: epistaxis Respiratory: Denies: dyspnea Cardiovascular: Denies: chest pain Endocrine: Denies: fatigue Gastrointestinal: Denies: abdominal pain Genitourinary: Denies: dysuria Musculoskeletal: Denies: back pain Skin: Denies: rash Neurological: Denies: weakness Past Medical History Past Medical History: Coronary Artery Disease (CAD), Cancer, Chest Pain / Angina , Diabetes Mellitus, Eye Disorder, Fibromyalgia, GERD/Reflux, Hyperlipidemia, Hypertension, Myocardial Infarction ([place]), Osteoarthritis (OA) Additional Past Medical History / Comment(s): HX STRESS INCONTINENCE, CHRONIC BACK PAIN, BREAST CANCER, GLASSES TO READ Last Myocardial Infarction Date:: 05/09/2012 History of Any Multi-Drug Resistant Organisms: None Reported Past Surgical History: Appendectomy, Breast Surgery, Heart Catheterization With Stent Additional Past Surgical History / Comment(s): EXT. CATARACT WITH LENS IMPLANT RAZIA.,LAST CARDIAC STENT 01/14/15-TOTAL 2 STENTS, colonscopy,RAZIA. BREAST LUMPECTOMY. 03-10-15 total rt knee replacement. Past Anesthesia/Blood Transfusion Reactions: No Reported Reaction Additional Past Anesthesia/Blood Transfusion Reaction / Comment(s): ALLERGY TO NICKEL Date of Last Stent Placement:: 01/14/15 Past Psychological History: Anxiety, Depression Smoking Status: Former smoker Past Alcohol Use History: None Reported Past Drug Use History: None Reported - Past Family History Brother(s) Family Medical History: CVA/TIA Additional Family Medical History / Comment(s): HX BLOOD CLOTS Mother History Unknown: Yes Family Medical History: Cancer Additional Family Medical History / Comment(s): Lung CA, Bone CA, Father Family Medical History: CVA/TIA, Myocardial Infarction (VT) General Exam Limitations: no limitations General appearance: alert Head exam: Present: atraumatic Eye exam: Present: normal appearance, PERRL ENT exam: Present: other (Fresh blood bilateral nares. Unable to identify source of bleeding. There is blood in the posterior pharynx) Neck exam: Present: normal inspection Respiratory exam: Present: normal lung sounds bilaterally Cardiovascular Exam: Present: regular rate, normal rhythm GI/Abdominal exam: Present: soft. Absent: tenderness Extremities exam: Present: normal inspection Neurological exam: Present: alert Psychiatric exam: Present: normal affect, normal mood Skin exam: Present: normal color Course Vital Signs 09/19/17 05:12 Temperature 96.3 F L Pulse Rate 71 Respiratory 20 Rate Blood Pressure 132/85 O2 Sat by Pulse 96 Oximetry - Reevaluation(s) Reevaluation #1: 09/19/17 06:19 Patient reevaluated and has continued hemostasis. Patient updated. Procedures - Procedures Initial comment: Epistaxis care: Suction bilaterally with wall suction. Unable to visualize source of bleeding. Posterior Rhino Rocket placed with hemostasis obtained. Disposition Clinical Impression: Acute posterior epistaxis Disposition: HOME SELF-CARE Condition: Stable Instructions: Nosebleed (ED) Additional Instructions: Please follow-up with ENT in 2-3 days for reevaluation and packing removal. Return for bleeding, weakness or shortness of breath, worsening symptoms or other concerns. Hold Plavix for the next 3 days. Prescriptions: Azithromycin [Zithromax Z-pack] 250 mg PO DAILY #4 tab Referrals: Ezra Alvarez DO [Primary Care Provider] - 1-2 days Leodan Rainey DO [Doctor of Osteopathic Medicine] - 1-2 days Time of Disposition: 06:20
== END 2017-09-19 06:32 | disposition home or self-care (01) ==
LOC: EC 05:09
DX: R04.0 Epistaxis (principal); R04.1 Hemorrhage from throat; E78.5 Hyperlipidemia, unspecified; E11.9 Type 2 diabetes mellitus without complications; M19.90 Unspecified osteoarthritis, unspecified site; I25.2 Old myocardial infarction; I10 Essential (primary) hypertension; F32.9 Major depressive disorder, single episode, unspecified; F41.9 Anxiety disorder, unspecified; I25.10 Atherosclerotic heart disease of native coronary artery without angina pectoris; Z87.891 Personal history of nicotine dependence; Z88.0 Allergy status to penicillin; Z88.8 Allergy status to other drugs, medicaments and biological substances; Z91.09 Other allergy status, other than to drugs and biological substances; Z91.048 Other nonmedicinal substance allergy status; Z79.4 Long term (current) use of insulin; Z79.02 Long term (current) use of antithrombotics/antiplatelets; Z79.82 Long term (current) use of aspirin; Z79.899 Other long term (current) drug therapy
CPT/HCPCS: 99283

== ENCOUNTER 2017-09-19 11:59 | Emergency (ER) | payer MEDICARE ==
[2017-09-19 12:47] VITALS: RESP 18
[2017-09-19] MEDS ORDERED: OXYMETAZOLINE 0.05% NASL SPRAY 1 SPRAY BOTTLE NASAL STA (13:34)
--- NOTE | 2017-09-19 13:35 | ED ---
Recheck HPI - General Chief Complaint: Recheck/Abnormal Lab/Rx Stated Complaint: Nosebleed Time Seen by Provider: 09/19/17 13:25 Source: patient Mode of arrival: ambulatory Limitations: no limitations - History of Present Illness Initial Comments: This is a pleasant 77-year-old female presents emergency department complaining of a nosebleed. Patient states she was here early this morning and had the left side of her nose packed with an intranasal balloon by Dr. Rose. However, patient went home and there was a small amount of leading from the leftpatient also had some bleeding from the right. Patient does have a posterior nasal balloon in. Patient is on Plavix but did hold today's dose. Patient denies any shortness of breath or chest pain. No palpitations. No lightheadedness. Patient is complaining of pressure to the left side of her nose from the packing. Patient denies any other bleeding. No airway problems. - Related Data Home Medications Medication Instructions Recorded Confirmed Atorvastatin [Lipitor] 40 mg PO HS 10/16/13 07/17/17 Clopidogrel [Plavix] 75 mg PO DAILY 10/16/13 07/17/17 Donepezil [Aricept] 10 mg PO BID 10/16/13 07/17/17 Gabapentin [Neurontin] 600 mg PO BID 10/16/13 07/17/17 Insuln Asp Prt/Insulin Aspart 50 units SQ AC-BID 10/16/13 07/17/17 [NovoLOG MIX 70-30 VIAL] Potassium Chloride [K-Tab ER] 10 meq PO BID 10/16/13 07/17/17 Furosemide [Lasix] 40 mg PO BID 01/14/15 07/17/17 Venlafaxine HCl ER [Effexor XR] 75 mg PO BID 01/14/15 07/17/17 Atenolol [Tenormin] 25 mg PO BID 10/28/15 07/17/17 ALPRAZolam [Xanax] 0.5 mg PO BID PRN 09/22/16 07/17/17 Aspirin 81 mg PO DAILY 07/17/17 07/17/17 Cholecalciferol [Vitamin D3] 1,000 unit PO BID 07/17/17 07/17/17 Hydrocodone/Acetaminophen [[place] 1 tab PO Q6HR PRN 07/17/17 07/17/17 5-325] Multivitamins, Thera [Multivitamin 1 tab PO DAILY 07/17/17 07/17/17 (formulary)] Naproxen [Naprosyn] 500 mg PO Q12HR PRN 07/17/17 07/17/17 Oxybutynin Chloride [Ditropan] 10 mg PO BID 07/17/17 07/17/17 Terbinafine HCl [LamISIL] 250 mg PO DAILY 07/17/17 07/17/17 clonazePAM [KlonoPIN] 2 mg PO BID 07/17/17 07/17/17 Previous Rx's Medication Instructions Recorded Isosorbide Mononitrate ER [Imdur] 30 mg PO DAILY #30 tab 01/16/15 Azithromycin [Zithromax Z-pack] 250 mg PO DAILY #4 tab 09/19/17 Allergies Allergy/AdvReac Type Severity Reaction Status Date / Time mineral oil [Mineral Oil] Allergy Rash/Hives Verified 09/19/17 12:47 nickel Allergy Rash/Hives Verified 09/19/17 12:47 Penicillins Allergy Anaphylaxis Verified 09/19/17 12:47 dove soap Allergy Rash/Hives Uncoded 09/19/17 12:47 Review of Systems ROS Statement: Those systems with pertinent positive or pertinent negative responses have been documented in the HPI. ROS Other: All systems not noted in ROS Statement are negative. Past Medical History Past Medical History: Coronary Artery Disease (CAD), Cancer, Chest Pain / Angina , Diabetes Mellitus, Eye Disorder, Fibromyalgia, GERD/Reflux, Hyperlipidemia, Hypertension, Myocardial Infarction ([place]), Osteoarthritis (OA) Additional Past Medical History / Comment(s): HX STRESS INCONTINENCE, CHRONIC BACK PAIN, BREAST CANCER, GLASSES TO READ Last Myocardial Infarction Date:: 05/09/2012 History of Any Multi-Drug Resistant Organisms: None Reported Past Surgical History: Appendectomy, Breast Surgery, Heart Catheterization With Stent Additional Past Surgical History / Comment(s): EXT. CATARACT WITH LENS IMPLANT RAZIA.,LAST CARDIAC STENT 01/14/15-TOTAL 2 STENTS, colonscopy,RAZIA. BREAST LUMPECTOMY. 03-10-15 total rt knee replacement. Past Anesthesia/Blood Transfusion Reactions: No Reported Reaction Additional Past Anesthesia/Blood Transfusion Reaction / Comment(s): ALLERGY TO NICKEL Date of Last Stent Placement:: 01/14/15 Past Psychological History: Anxiety, Depression Smoking Status: Former smoker Past Alcohol Use History: None Reported Past Drug Use History: None Reported Additional History: Past medical and surgical history reviewed - Past Family History Brother(s) Family Medical History: CVA/TIA Additional Family Medical History / Comment(s): HX BLOOD CLOTS Mother History Unknown: Yes Family Medical History: Cancer Additional Family Medical History / Comment(s): Lung CA, Bone CA, Father Family Medical History: CVA/TIA, Myocardial Infarction ([place]) General Exam - General Exam Comments Initial Comments: This is an obese 77-year-old female presents emergency department mild distress due to the pressure of the packing in her left nose Limitations: no limitations General appearance: alert Head exam: Present: atraumatic, normocephalic, normal inspection Eye exam: Present: normal appearance, EOMI. Absent: scleral icterus, conjunctival injection ENT exam: Present: mucous membranes moist, TM's normal bilaterally, normal external ear exam, other (Patient does have minimal evidence of some recent bleeding in the posterior pharynx. However this is very mild. There appears to be no active bleeding. There is a posterior nasal balloon in the left naris. Right nostril does reveal some inflamed blood vessels on the anterior nasal septum. No active bleeding. There is no airway Arise. Oropharynx is clear.). Absent: mucous membranes dry Neck exam: Present: normal inspection. Absent: tenderness, meningismus, lymphadenopathy Respiratory exam: Present: normal lung sounds bilaterally. Absent: respiratory distress, wheezes, rales, rhonchi, stridor Cardiovascular Exam: Present: regular rate, normal rhythm, normal heart sounds. Absent: systolic murmur, diastolic murmur, rubs, gallop, clicks GI/Abdominal exam: Present: soft. Absent: distended, tenderness Neurological exam: Present: alert, oriented X3, CN II-XII intact Psychiatric exam: Present: normal affect, normal mood Skin exam: Present: warm, dry, intact, normal color. Absent: rash Course Vital Signs 09/19/17 12:46 Temperature 98.0 F Pulse Rate 75 Respiratory 18 Rate Blood Pressure 149/62 O2 Sat by Pulse 96 Oximetry - Reevaluation(s) Reevaluation #1: 09/19/17 13:37 I did add a small amount of air to each balloon in the left nasal balloon tampon. Patient will be observed here in the ER. There is no active bleeding. Patient's vital signs are normal. Patient has no significant distress. Afrin , 2 sprays to the right nostril was ordered. Patient was started on antibiotics as well as holding the Plavix this morning. Reevaluation #2: 09/19/17 14:08 Patient was reevaluated and has no active bleeding. I did add a small amount of air to each balloon. Patient tolerated well. No active bleeding. Vital signs are stable. Medical Decision Making - Medical Decision Making Patient presented with no active bleeding. Patient had some dribbling from the left nose around the packing. Patient states she also had a small amount of bleeding from the right nose. Patient has no active bleeding from the right nose or posterior pharynx. Patient's vital signs are stable. I did add a small amount of air to each balloon. Patient tolerated well. Patient was observed and had no subsequent bleeding. Vital signs remain stable. Patient will hold Plavix. I did give the patient Afrin nasal spray, 2 sprays to the right nostril. Disposition Clinical Impression: Epistaxis, recurrent Disposition: HOME SELF-CARE Condition: Stable Instructions: Nosebleed (ED) Additional Instructions: Hold Plavix, continue antibiotics, follow up with yourthroat doctor as directed or return to the ER if needed. Return anytime if symptoms progress or any other problems arise. Return and follow-up parameters discussed. Case discussed with the ER attending physician Refrain from manipulating or moving the nasal balloon Referrals: Leodan Rainey DO [Doctor of Osteopathic Medicine] - 09/22/17 Ezra Alvarez DO [Primary Care Provider] - 09/22/17 Time of Disposition: 14:10
[2017-09-19 14:23] VITALS: BP 173/72; PULSE 86; TEMP 97.8
== END 2017-09-19 14:34 | disposition home or self-care (01) ==
LOC: EC 11:59
DX: R04.0 Epistaxis (principal); J34.89 Other specified disorders of nose and nasal sinuses; E11.9 Type 2 diabetes mellitus without complications; I10 Essential (primary) hypertension; E78.5 Hyperlipidemia, unspecified; M19.90 Unspecified osteoarthritis, unspecified site; I25.2 Old myocardial infarction; F32.9 Major depressive disorder, single episode, unspecified; F41.9 Anxiety disorder, unspecified; E66.9 Obesity, unspecified; I25.10 Atherosclerotic heart disease of native coronary artery without angina pectoris; Z87.891 Personal history of nicotine dependence; Z88.8 Allergy status to other drugs, medicaments and biological substances; Z88.0 Allergy status to penicillin; Z91.09 Other allergy status, other than to drugs and biological substances; Z79.4 Long term (current) use of insulin; Z79.02 Long term (current) use of antithrombotics/antiplatelets; Z79.899 Other long term (current) drug therapy; Z68.42 Body mass index [BMI] 45.0-49.9, adult; Z98.890 Other specified postprocedural states
CPT/HCPCS: 99282

== ENCOUNTER 2017-09-20 10:07 | Emergency (ER) | payer MEDICARE ==
--- NOTE | 2017-09-20 10:54 | ED ---
General Adult HPI - General Chief complaint: ENT Stated complaint: Nosebleed Time Seen by Provider: 09/20/17 10:34 Source: patient, EMS, RN notes reviewed Mode of arrival: EMS Limitations: no limitations - History of Present Illness Initial comments: 77-year-old female presents for reevaluation of nosebleed. Patient was in the emergency department twice yesterday with nosebleed. She did have a inflatable compression device placed. She has had some persistent anterior oozing of blood since that time. She did call ENT, who recommended a 5 day waiting period prior to evaluation secondary to her Plavix. She did discontinue her Plavix yesterday. Patient and her states they did not sleep much last night secondary to concern of constant bleeding. She has coughed up several small blood clots. - Related Data Home Medications Medication Instructions Recorded Confirmed Atorvastatin [Lipitor] 40 mg PO HS 10/16/13 09/20/17 Clopidogrel [Plavix] 75 mg PO DAILY 10/16/13 09/20/17 Donepezil [Aricept] 10 mg PO BID 10/16/13 09/20/17 Gabapentin [Neurontin] 600 mg PO BID 10/16/13 09/20/17 Insuln Asp Prt/Insulin Aspart 70 units SQ AC-BID 10/16/13 09/20/17 [NovoLOG MIX 70-30 VIAL] Potassium Chloride [K-Tab ER] 10 meq PO BID 10/16/13 09/20/17 Furosemide [Lasix] 40 mg PO HS 01/14/15 09/20/17 Venlafaxine HCl ER [Effexor XR] 75 mg PO BID 01/14/15 09/20/17 Atenolol [Tenormin] 25 mg PO BID 10/28/15 09/20/17 ALPRAZolam [Xanax] 0.5 mg PO BID PRN 09/22/16 09/20/17 Aspirin 81 mg PO DAILY 07/17/17 09/20/17 Cholecalciferol [Vitamin D3] 1,000 unit PO BID 07/17/17 09/20/17 Hydrocodone/Acetaminophen [[place] 1 tab PO Q6HR PRN 07/17/17 09/20/17 5-325] Multivitamins, Thera [Multivitamin 1 tab PO DAILY 02/05/18 04/11/18 (formulary)] Naproxen [Naprosyn] 500 mg PO Q12HR PRN 07/17/17 09/20/17 Oxybutynin Chloride [Ditropan] 10 mg PO BID 07/17/17 09/20/17 clonazePAM [KlonoPIN] 2 mg PO BID 07/17/17 09/20/17 Furosemide [Lasix] 80 mg PO DAILY@0800 09/20/17 09/20/17 Previous Rx's Medication Instructions Recorded Isosorbide Mononitrate ER [Imdur] 30 mg PO DAILY #30 tab 01/16/15 Levofloxacin [Levaquin] 500 mg PO DAILY 3 Days #5 tab 09/20/17 Allergies Allergy/AdvReac Type Severity Reaction Status Date / Time mineral oil [Mineral Oil] Allergy Rash/Hives Verified 09/20/17 10:16 nickel Allergy Rash/Hives Verified 09/20/17 10:16 Penicillins Allergy Anaphylaxis Verified 09/20/17 10:16 dove soap Allergy Rash/Hives Uncoded 09/20/17 10:10 Review of Systems ROS Statement: Those systems with pertinent positive or pertinent negative responses have been documented in the HPI. ROS Other: All systems not noted in ROS Statement are negative. Past Medical History Past Medical History: Coronary Artery Disease (CAD), Cancer, Chest Pain / Angina , Diabetes Mellitus, Eye Disorder, Fibromyalgia, GERD/Reflux, Hyperlipidemia, Hypertension, Myocardial Infarction ([place]), Osteoarthritis (OA) Additional Past Medical History / Comment(s): HX STRESS INCONTINENCE, CHRONIC BACK PAIN, BREAST CANCER, GLASSES TO READ Last Myocardial Infarction Date:: 05/09/2012 History of Any Multi-Drug Resistant Organisms: None Reported Past Surgical History: Appendectomy, Breast Surgery, Heart Catheterization With Stent Additional Past Surgical History / Comment(s): EXT. CATARACT WITH LENS IMPLANT RAZIA.,LAST CARDIAC STENT 01/14/15-TOTAL 2 STENTS, colonscopy,RAZIA. BREAST LUMPECTOMY. 03-10-15 total rt knee replacement. Past Anesthesia/Blood Transfusion Reactions: No Reported Reaction Additional Past Anesthesia/Blood Transfusion Reaction / Comment(s): ALLERGY TO NICKEL Date of Last Stent Placement:: 01/14/15 Past Psychological History: Anxiety, Depression Smoking Status: Former smoker Past Alcohol Use History: None Reported Past Drug Use History: None Reported - Past Family History Brother(s) Family Medical History: CVA/TIA Additional Family Medical History / Comment(s): HX BLOOD CLOTS Mother History Unknown: Yes Family Medical History: Cancer Additional Family Medical History / Comment(s): Lung CA, Bone CA, Father Family Medical History: CVA/TIA, Myocardial Infarction ([place]) General Exam Limitations: no limitations General appearance: alert, in no apparent distress Head exam: Present: atraumatic, normocephalic Eye exam: Present: normal appearance, PERRL ENT exam: Present: other (Patient has left there compression device, and place, no anterior bleeding, there is some dried blood in the posterior oropharynx, no signs of active bleeding.) Respiratory exam: Present: normal lung sounds bilaterally. Absent: respiratory distress Cardiovascular Exam: Present: regular rate, normal rhythm GI/Abdominal exam: Present: soft. Absent: distended, tenderness, guarding, rebound Neurological exam: Present: alert, motor sensory deficit (Left upper extremity weakness, chronic) Skin exam: Present: warm, dry, intact, pallor. Absent: cyanosis, diaphoretic Course Vital Signs 09/20/17 10:10 Temperature 97.3 F L Pulse Rate 78 Respiratory 16 Rate Blood Pressure 164/73 O2 Sat by Pulse 99 Oximetry Medical Decision Making - Medical Decision Making 77-year-old female with nosebleed status post packing presenting for reevaluation. There is no active bleeding, she is observed in the emergency department for approximately 2 hours with no anterior or posterior bleeding. Nasal compression device is undisturbed. Laboratory studies are obtained as this is her fourth visit for evaluation, hemoglobin is 12.5 which is stable. Patient's daughter was also concerned for UTI, urine test was obtained, and there is 40 WBCs and large leukocyte Estrace. Patient will be started on a 5 day course of Levaquin as she has a penicillin ALLERGY for both UTI and prophylaxis for nasal packing. Patient will continue to hold Plavix, follow up with ENT in the next 4-5 days. - Lab Data Result diagrams: 09/20/17 11:04 09/20/17 11:04 Lab Results 09/20/17 09/20/17 09/20/17 Range/Units 11:04 11:04 11:04 WBC 14.3 H (3.8-10.6) k/uL RBC 4.15 (3.80-5.40) m/uL Hgb 12.5 (11.4-16.0) gm/dL Hct 36.4 (34.0-46.0) % MCV 87.6 (80.0-100.0) fL MCH 30.2 (25.0-35.0) pg MCHC 34.4 (31.0-37.0) g/dL RDW 13.3 (11.5-15.5) % Plt Count 324 (150-450) k/uL Neutrophils % 75 % Lymphocytes % 17 % Monocytes % 6 % Eosinophils % 1 % Basophils % 0 % Neutrophils # 10.7 H (1.3-7.7) k/uL Lymphocytes # 2.4 (1.0-4.8) k/uL Monocytes # 0.8 (0-1.0) k/uL Eosinophils # 0.2 (0-0.7) k/uL Basophils # 0.1 (0-0.2) k/uL Sodium 138 (137-145) mmol/L Potassium 4.8 (3.5-5.1) mmol/L Chloride 98 (98-107) mmol/L Carbon Dioxide 28 (22-30) mmol/L Anion Gap 12 mmol/L BUN 14 (7-17) mg/dL Creatinine 0.49 L (0.52-1.04) mg/dL Est GFR (CKD-EPI)AfAm >90 (>60 ml/min/1.73 sqM) Est GFR (CKD-EPI)NonAf >90 (>60 ml/min/1.73 sqM) Glucose 198 H (74-99) mg/dL Calcium 9.9 (8.4-10.2) mg/dL Total Bilirubin 0.5 (0.2-1.3) mg/dL AST 24 (14-36) U/L ALT 28 (9-52) U/L Alkaline Phosphatase 102 (38-126) U/L Total Protein 7.2 (6.3-8.2) g/dL Albumin 3.8 (3.5-5.0) g/dL Urine Color Light Yellow Urine Appearance Clear (Clear) Urine pH 6.5 (5.0-8.0) Ur Specific [place] 1.006 (1.001-1.035) Urine Protein Negative (Negative) Urine Glucose (UA) Negative (Negative) Urine Ketones Negative (Negative) Urine Blood Negative (Negative) Urine Nitrite Negative (Negative) Urine Bilirubin Negative (Negative) Urine Urobilinogen <2.0 (<2.0) mg/dL Ur Leukocyte Esterase Large H (Negative) Urine WBC 40 H (0-5) /hpf Ur Squamous Epith Cells 2 (0-4) /hpf Urine Bacteria Few H (None) /hpf Disposition Clinical Impression: Epistaxis, recurrent, UTI (urinary tract infection) Disposition: HOME SELF-CARE Condition: Good Instructions: Nosebleed (ED) Prescriptions: Levofloxacin [Levaquin] 500 mg PO DAILY 3 Days #5 tab Referrals: Ezra Alvarez DO [Primary Care Provider] - 1-2 days Leodan Rainey DO [Doctor of Osteopathic Medicine] - 1-2 days Time of Disposition: 12:06
[2017-09-20 11:22] LABS: Basophils # (A) 0.1 k/uL (0-0.2); Basophils % (A) 0 %; Eosinophils # (A) 0.2 k/uL (0-0.7); Eosinophils % (A) 1 %; HCT 36.4 % (34.0-46.0); HGB 12.5 gm/dL (11.4-16.0); Lymphocytes # (A) 2.4 k/uL (1.0-4.8); Lymphocytes % (A) 17 %; MCH 30.2 pg (25.0-35.0); MCHC 34.4 g/dL (31.0-37.0); MCV 87.6 fL (80.0-100.0); Mean Platelet Volume 7.2; Monocytes # (A) 0.8 k/uL (0-1.0); Monocytes % (A) 6 %; Neutrophils # (A) 10.7 k/uL (1.3-7.7); Neutrophils % (A) 75 %; Platelet Count 324 k/uL (150-450); RBC 4.15 m/uL (3.80-5.40); RDW 13.3 % (11.5-15.5); WBC 14.3 k/uL (3.8-10.6)
[2017-09-20 11:28] LABS: ALT 28 U/L (9-52); AST 24 U/L (14-36); Albumin 3.8 g/dL (3.5-5.0); Alkaline Phosphatase 102 U/L (38-126); Anion Gap 12 mmol/L; Appearance,Urine Clear (Clear); Bacteria,Urine Few /hpf; Bilirubin,Urine Negative (Negative); Blood Urea Nitrogen 14 mg/dL (7-17); Blood,Urine Negative (Negative); Calcium 9.9 mg/dL (8.4-10.2); Carbon Dioxide 28 mmol/L (22-30); Chloride 98 mmol/L (98-107); Color,Urine Light Yellow; Glucose 198 mg/dL (74-99); Glucose,Urine (UA) Negative (Negative); Ketones,Urine Negative (Negative); Leukocyte Esterase,Urine Large (Negative); Nitrite,Urine Negative (Negative); PH, Urine 6.5 (5.0-8.0); Potassium 4.8 mmol/L (3.5-5.1); Protein,Urine Negative (Negative); Sodium 138 mmol/L (137-145); Specific Gravity,Urine 1.006 (1.001-1.035); Squamous Epithelial Cell,Urine 2 /hpf (0-4); Total Bilirubin 0.5 mg/dL (0.2-1.3); Total Protein 7.2 g/dL (6.3-8.2); Urobilinogen,Urine <2.0 mg/dL (<2.0); WBC,Urine 40 /hpf (0-5)
[2017-09-20 12:20] VITALS: BP 181/87; PULSE 64; RESP 18; TEMP 97.1
== END 2017-09-20 12:19 | disposition home or self-care (01) ==
LOC: EC 10:07
DX: R04.0 Epistaxis (principal); N39.0 Urinary tract infection, site not specified; I25.119 Atherosclerotic heart disease of native coronary artery with unspecified angina pectoris; E11.9 Type 2 diabetes mellitus without complications; E78.5 Hyperlipidemia, unspecified; I10 Essential (primary) hypertension; I25.2 Old myocardial infarction; F32.9 Major depressive disorder, single episode, unspecified; F41.9 Anxiety disorder, unspecified; Z87.891 Personal history of nicotine dependence; Z85.3 Personal history of malignant neoplasm of breast; Z79.82 Long term (current) use of aspirin; Z79.4 Long term (current) use of insulin; Z79.01 Long term (current) use of anticoagulants; Z79.899 Other long term (current) drug therapy; Z88.0 Allergy status to penicillin; Z91.048 Other nonmedicinal substance allergy status; Z88.8 Allergy status to other drugs, medicaments and biological substances
CPT/HCPCS: 36415; 80053; 81001; 85025; 99283